=== PATIENT | male | born 1950 | race Caucasian/White ===

== ENCOUNTER 2024-02-24 10:09 | Outpatient (CLI) | payer MEDICARE, OTHER, SELFPAY | END 2024-02-24 10:10 | disposition home or self-care (01) | PROVIDERS: PCP Emergency Medicine; Visit Provider Specialist | DX: L57.0 Actinic keratosis (principal) | CPT/HCPCS: 88305 ==

== ENCOUNTER 2024-03-04 23:31 | Inpatient (IN) | payer MEDICARE, OTHER, SELFPAY ==
--- NOTE | ~2024-03-04 | XR_ITS ---
Clinical Indication: Chest pain PA and lateral views of the chest: Comparison: None Findings: The lungs are clear, without evidence of focal consolidation or pleural effusion. Cardiome diastinal silhouette is within normal limits. Bones and soft tissues are unremarkable. Impression: Normal chest. Reviewed, dictated and finalized at location . Impression: Normal chest.
--- NOTE | ~2024-03-04 | US_ITS ---
US abdomen limited DATE: 03/06/2024 08:06 INDICATION: Abdominal pain TECHNIQUE: Real-time imaging of liver, pancreas, gallbladder COMPARISON: March 05, 2024 CTA chest abdomen and pelvis FINDINGS: No hepatic or pancreatic space-occupying mass lesion is detected. Normal hepatopedal portal venous flow direction. No gallstones or gallbladder wall thickening. Negative sonographic Mane's s ign. The common bile duct measures 2.9 mm diameter, normal. IMPRESSION: No significant abnormality Reviewed, dictated and finalized at Location [facility]. Reviewed, dictated and finalized at location A. IMPRESSION: No significant abnormality
--- NOTE | ~2024-03-04 | CT_ITS ---
Clinical Indication: Dissection CT Scan of the Chest, Abdomen, and Pelvis with Contrast: Technique: Contiguous sections were acquired throughout the chest, abdomen, and pelvis after intraven ous administration of 100 cc of Omnipaque 350. Dose reduction technique was used on this scan by luisa garsia automated exposure control and iterative reconstruction technique. The dose-length product (DL P) was 690.28 mGy-cm. Findings: There is no evidence of any significant mediastinal, hilar or axillary lymphadenopathy. Calcified lef t hilar lymph nodes are present. The mediastinal soft tissues otherwise appear normal. No aortic aneu rysm or dissection. No pulmonary embolus seen. There is no evidence of pleural or pericardial effusion. The lungs are clear, aside from left lower lobe calcified granuloma. The liver, spleen, pancreas, gallbladder, adrenals and kidneys are within normal limits. No evidence of aortic aneurysm or dissection. No lymphadenopathy. No bowel obstruction or bowel wall thickening. Evidence of extensive prior colectomy. Urinary bladder is unremarkable. No pelvic mass seen. No ascites. Impression: No aortic aneurysm or dissection. No acute abnormality. Evidence of prior granulomatous disease. Reviewed, dictated and finalized at [facility]. Impression: No aortic aneurysm or dissection. No acute abnormality. Evidence of prior granulomatous disease.
--- NOTE | 2024-03-04 23:36 | ECG_ITS ---
SEE SCANNED COPY FOR CONFIRMED REPORT MTDD
[2024-03-04] MEDS: ASPIRIN 81 MG CHEWABLE TABLET 324 MG PO (23:38)
[2024-03-04 23:40] VITALS: BP 153/94; PULSE 77; RESP 16; TEMP 36.3; O2SAT 98
[2024-03-04] MEDS: ONDANSETRON INJ 4 MG/2 ML VIAL IV PUSH (23:49)
[2024-03-04] MEDS: MORPHINE SULFATE (*CRX) 4 MG/ML INJ IV PUSH (23:50)
[2024-03-04 23:51] LABS: Hematocrit 48.2 % (42.0-52.0); Mean Corpuscular HGB Conc 33.2 g/dl (32-36); Mean Corpuscular Hemoglobin 31.8 pg (26-34); Mean Corpuscular Volume 95.8 fl (80-100); Mean Platelet Volume 9.8 fl (7.4-10.4); Platelet Count Result 273 k/mm3 (150-375); Red Blood Count 5.03 M/mm3 (4.6-6.20); Red Cell Distribution Width 13.2 % (11.5-14.5); White Blood Count 11.3 K/mm3 (4.5-10.0)
[2024-03-05] VITALS (26 sets, daily range): BP systolic 98–152; BP diastolic 54–84; PULSE 54–83; RESP 12–20; TEMP 36.3–36.7; O2SAT 94–100; BMI 25.2
[2024-03-05 00:01] LABS: Estimated CRCL calculation 35 ml/min; Estimated Glomerular Filt Rate 35
[2024-03-05 00:01] LABS: Alanine Aminotransferase 25 U/L (6-50); Albumin Level 4.4 g/dL (3.5-5.1); Alkaline Phosphatase 85 U/L (38-126); Anion Gap 7 mmol/L (4-12); Aspartate Amino Transferase 29 U/L (17-59); Bilirubin,Total 0.5 mg/dL (0.2-1.3); Blood Urea Nitrogen 26 mg/dL (9-20); Calcium 9.8 mg/dL (8.4-10.2); Carbon Dioxide 24 mmol/L (22-30); Chloride 106 mmol/L (98-107); Estimated CRCL calculation 41 ml/min; Estimated Glomerular Filt Rate 43; Glucose 129 mg/dL (65-110); Lipase 88 U/L (23-300); Sodium 137 mmol/L (137-145)
[2024-03-05 00:02] LABS: INR 0.9; Partial Thromboplastin Time 25.9 Seconds (22.3-36.8); Prothrombin Time 12.3 Seconds (11.1-14.7)
[2024-03-05 00:12] LABS: Troponin I < 0.012 ng/mL (0.000-0.034)
[2024-03-05 00:17] LABS: Band Neutrophils Percent 9 % (0-6); Basophils Absolute Manual 0.11 K/mm3 (0.0-0.1); Basophils Percent Manual 1 % (0-1); Eosinophils Absolute Manual 0.11 K/mm3 (0.02-0.50); Eosinophils Percent Manual 1 % (0-4); Lymphocytes Absolute Manual 5.53 K/mm3 (1.1-4.5); Lymphocytes Percent Manual 49 % (18-44); Monocytes Absolute Manual 0.79 K/mm3 (0.1-0.90); Monocytes Percent Manual 7 % (3-9); Neutrophils Absolute Manual 4.74 K/mm3 (1.3-6.7); Neutrophils Percent Manual 33 % (46-73); Total Cells Counted 100
[2024-03-05 00:18] LABS: Hypochromasia 1+; Platelet Estimate Adequate (Adequate)
[2024-03-05 00:19] LABS: Ovalocytes 1+; Schistocytes None Seen
[2024-03-05] MEDS: NITROGLYCERIN SL 0.4 MG TABLET SUBLINGUAL ×2 (00:34→18:19)
--- NOTE | 2024-03-05 00:50 | ED.CHESTPAIN ---
HPI - Chest Pain General Chief Complaint: Chest Pain Stated Complaint: chest pain Time Seen by Provider: 03/04/24 23:49 History of Present Illness HPI narrative: Patient is a 73-year-old male who presents to the emergency department this morning complaining of substernal chest pain woke him up from sleep. Patient states the pain is 10/10 and is present at rest and not precipitated by any movements or respirations. Pain does radiate to the patient's back. Patient denies any history of aortic aneurysm. 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 Patient does see a punch press feeder, Dr. Yao at [place] according to the . Patient denies any recent fevers or chills, any shortness of breath and denies any additional symptoms or concerns at this time. Related Data Allergies Allergy/AdvReac Type Severity Reaction Status Date / Time niacin Allergy Flushing Verified 03/04/24 23:49 Review of Systems Review of Systems: All systems are reviewed and are negative unless stated otherwise in the HPI. Exam Narrative: General: Alert, awake, afebrile, in moderate distress. HEENT: PERRL, no rhinorrhea, no post nasal drip, oropharynx clear. Neck: Trachea midline, no JVD, no lymphadenopathy. Cardiovascular: Regular rate and rhythm, no murmurs, rubs or gallops, no peripheral edema. Respiratory: Clear to auscultation bilaterally, no tachypnea, no wheezing, no rhonchi, no rubs, no respiratory distress. Abdomen: Soft, nontender, nondistended, no rebound, no guarding, no peritoneal signs. Musculoskeletal: No joint swelling or deformity, normal muscle tone. Skin: No rashes or petechia, no signs of infection. Psychiatric: Alert and oriented, normal behavior and judgment for situation. Neurological: Alert and oriented to person, place, and time. Follows all commands. No focal deficits, speech is clear and fluent. Course Vital Signs Vital signs: Vital Signs Temperature 97.4 F L 03/04/24 23:40 Pulse Rate 77 03/04/24 23:40 Respiratory Rate 16 03/04/24 23:40 Blood Pressure 153/94 H 03/04/24 23:40 Pulse Oximetry 98 03/04/24 23:40 Oxygen Delivery Room Air 03/04/24 23:40 Temperature 97.4 F L 03/04/24 23:40 Pulse Rate 54 L 03/05/24 02:35 Respiratory Rate 16 03/05/24 02:35 Blood Pressure 108/65 03/05/24 02:35 Pulse Oximetry 97 03/05/24 02:35 Oxygen Delivery Room Air 03/05/24 00:34 MDM - Chest Pain MDM Narrative Medical decision making narrative: The patient was evaluated by myself in the emergency department. History is obtained from patient who is an independent historian and physical exam was performed. External medical records were reviewed at this time. IV was established and pertinent tests were ordered. Patient was administered a full dose oral chewable aspirin at this time. Patient continues to have chest pain at this time he was administered 4 mg of IV morphine which did improve his chest pain. Patient was also administered sublingual nitroglycerin. EKG was obtained which revealed sinus rhythm with a rate of 68 beats per minute. Nonspecific T-wave inversions and ST depressions, no ST elevations. EKG was independently interpreted by me and is currently pending official cardiology read. Serial EKGs obtained during the patient's ER stay continue to reveal no evidence of a myocardial infarction, patient does have ischemic changes on his EKG including T-wave inversions and ST depressions, no ST elevations noted. Laboratory results obtained revealing no acute process. Initial troponin noted to be negative. Patient's kidney function revealed a BUN of 26 and creatinine of 1.9, patient denies any history of kidne
[2024-03-05] MEDS: ONDANSETRON INJ 4 MG/2 ML VIAL IV PUSH (00:54)
[2024-03-05] MEDS: MORPHINE SULFATE (*CRX) 4 MG/ML INJ IV PUSH (00:54)
--- NOTE | 2024-03-05 02:36 | ECG_ITS ---
SEE SCANNED COPY FOR CONFIRMED REPORT MTDD
[2024-03-05 03:06] LABS: Troponin I 0.044 ng/mL (0.000-0.034)
[2024-03-05] MEDS: HEPARIN SOD/D5W 100 UNITS/ML 25,000 UNITS/250 ML BAG 10 UNITS IV CONT (04:05)
--- NOTE | 2024-03-05 05:10 | ADMGEN ---
This patient, Louis Yanes, was admitted to IMU Room 210-01. Patient/family oriented to hospital policies and general routines including ID bracelet, bed and alarms, visiting hours, pain management, procedures, bathroom and other care routines, personal items, smoking policy, room service/diet, and visiting hours. Information on how to activate the Rapid Response Team has been discussed. Patient/Family are encouraged to report perceived risks to care and to ask questions if they do not understand what they are told or what they should do.
[2024-03-05 06:02] LABS: Troponin I 0.158 ng/mL (0.000-0.034)
--- NOTE | 2024-03-05 09:48 | PM.IMHP ---
H&P: HPI History of Present Illness Date/Time: 03/05/24 09:48 Chief Complaint: chest pain Narrative: Patient 73-year-old male with a past medical history bladder cancer, colon cancer, skin cancer, CAD with multiple cardiac caths without stent placement who presented to the ED with complaints of chest pain. Patient stated that he was up watching TV around 7 8 is when all the pain started however he decided that he was going to go to bed around 9. At 10:00 p.m. he woke up in lot of pain in the middle of the chest with radiation to the flu. He stated home he took ibuprofen with no relief. He denies any shortness a breath, nausea, vomiting, diarrhea, chills, sweats, fevers, constipation. He did state that he has lightheaded dizziness however has been diagnosed the past with vertigo. EKG in the ED did show sinus rhythm with some is T-wave inversion however no ST elevations. Troponins are rising with the last troponin being 1.58. Chest x-ray showed clear lungs without consolidation or pleural effusion. CTA of the chest showed apathy pulmonary embolism. Cardiology has been consulted. Patient has been started on a heparin drip. Patient is being admitted to the hospitalist service as an inpatient will require more than 2 midnights workup, treatment and recovery. Review of Systems Review of Systems: All systems reviewed & are unremarkable except as noted in HPI and below PMFSH Past Medical History Medical History (Updated 03/05/24 @ 10:04 by SUNITA Parish) Bladder cancer BPH (benign prostatic hyperplasia) Colon cancer HLD (hyperlipidemia) Skin cancer Surgical History Surgical History (Updated 03/05/24 @ 09:58 by SUNITA Parish) History of colon resection Family History Family History (Updated 03/05/24 @ 10:10 by SUNITA Parish) Mother Lung cancer Sibling Lung cancer Grandparent Liver cancer Father Acute myocardial infarction Diabetes mellitus Social History Social History (Updated 03/05/24 @ 10:11 by SUNITA Parish) Social History: With his Clari who will be his surrogate. He also wishes to be a full code at this time. He was x-ray tech for 47 years. Is Smoking status: Never smoker Alcohol intake: never Substance use: never Substance use type: does not use Do You Feel Safe in your Home?: Yes Lack of Transportation: No Lack of Food: Never True Current Housing: I Have Housing Concerned About Future Housing: No Difficulty Paying Gas/Electric Bills: No Difficulty Paying for Meds: No Currently Unemployed: No Education: Bachelor's Degree Difficulty w/ Childcare or Family Care: No Living arrangements: with family Occupation/Education: retired Additional occupation/education comments: X-ray tech Gender identity (if verbalized by the patient): Male Sexual Orientation (if Verbalized by the Patient): Straight or Heterosexual Spiritual care concerns: No Agree to blood products: Yes Comments Patient wishes to be a full code. He elected his Clari to be his surrogate. He was an instructional technology teacher for 47 years. Meds Home Medications and Allergies Home Medications Medication Instructions Recorded Confirmed Type alirocumab 150 mg/mL subcutaneous 1 mg subcut USEASDIRECTD 03/05/24 03/05/24 History pen injector (Praluent Pen) ezetimibe 10 mg tablet 10 mg PO DAILY 03/05/24 03/05/24 History finasteride 5 mg tablet 5 mg PO 2XW 03/05/24 03/05/24 History latanoprost 0.005 % eye drops 1 drp EACH EYE HS 03/05/24 03/05/24 History pantoprazole 40 mg tablet,delayed 40 mg PO DAILY 03/05/24 03/05/24 History release silodosin 8 mg capsule 8 mg PO DAILY 03/05/24 03/05/24 History Allergies Allergy/AdvReac Type Severity Reaction Status Date / Time midazolam [From Versed] Allergy Irritable Verified 03/05/24 09:58 niacin Allergy Flushing Verified 03/04/24 23:49 Vital Signs Vital Signs - 24 hr 03/04/24 23:40 03/05/24 00:34 03/05/24
--- NOTE | 2024-03-05 09:49 | PM.CNCAR ---
Assessment and Plan Assessment and plan (1) Acute non-ST elevation myocardial infarction (NSTEMI): Code(s): I21.4 - Non-ST elevation (NSTEMI) myocardial infarction Status: Acute Plan This is a 73-year-old man with dyslipidemia who entered the hospital last night after an episode of chest pain radiating to the midback that brought him in and awakened him from sleep. His electrocardiograms are unremarkable there has been a very modest rise in his troponin as noted on the lab data. Interestingly he has had 2 previous coronary angiograms performed by his history with negative findings. The most recent 1 however was about 11 years ago. Because of his symptoms and risk factors with his elevation of troponin he should have another coronary angiogram performed today. He of course understands this as he has had 2 previous catheterization procedures performed. Further recommendations will be forthcoming those findings Luís Alston MD [facility] History of Present Illness History of Present Illness Consult date/time: 03/05/24 09:49 Reason For Visit: NSTEMI Narrative: This is a 73-year-old man I am seeing at the request of the hospitalist because of chest pain and rise in his troponin level. The patient is unknown to me prior to this consult and appears is unknown to physicians at this hospital as a it appears this is his 1st admission here. He receives all his medical care up in [facility]. He reports to have a history of dyslipidemia, intolerance to statins and is being treated with Praluent and Zetia. He reports that he is otherwise generally in good health and does not have any significant cardiac concerns. He came to the emergency room by his private vehicle in the middle of the night when he was awakened with some chest pain he describes a central retrosternal chest pain that radiated through to his back with no associated symptoms such as nausea vomiting or diaphoresis. He took some ibuprofen hope Ling that this would alleviate the symptoms. When it did not after about 45 minutes they came to the emergency room for evaluation. His electrocardiograms in the ER were unremarkable his 1st troponin level was normal but has risen slightly to 0.1. He states that he still has some very mild sense of pressure in the center of the chest but appears to be otherwise very comfortable at the time of this interview. Normally with physical exertion and manual activity he is not provoking any symptoms of chest pain he denies any palpitations orthopnea PND or edema. Curiously he states that he has had 2 previous coronary angiograms performed S apparently with favorable results. He states he had and angiogram done back in about 1994 which was following up in abnormal stress test. 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 He then had a 2nd angiogram done in 2012 prior to colon surgery. He can not remember why the angiogram was felt to be necessary but once again he remembers being told that he did not have any coronary disease. He does not have any history of hypertension diabetes or cigarette smoking. He is retired x-ray technologist. Review of Systems Constitutional: Constitutional: Reports no additional constitutional complaints Eyes: Eyes: Reports no additional eye complaints ENT: Reports system reviewed and no additional complaints, except as documented Cardiovascular: Cardiovascular: Reports as per HPI Respiratory: Respiratory: Reports no additional respiratory complaints Gastrointestinal: Gastrointestinal: Reports heartburn Musculoskeletal: Musculoskeletal: Reports no additional musculoskeletal complaints Integumentary/Breasts: Skin/Breast: Reports system reviewed and no additional complaints, except as docu Neurologic: Reports system reviewed and no additional complaints, except as documented Endocrine: Endocrine: Reports no additional endocrine complaints Hemato
[2024-03-05 10:23] LABS: Partial Thromboplastin Time 56.3 Seconds (22.3-36.8)
[2024-03-05 10:26] LABS: Alanine Aminotransferase 22 U/L (6-50); Albumin Level 3.8 g/dL (3.5-5.1); Alkaline Phosphatase 70 U/L (38-126); Anion Gap 3 mmol/L (4-12); Aspartate Amino Transferase 34 U/L (17-59); Bilirubin,Total 0.6 mg/dL (0.2-1.3); Blood Urea Nitrogen 28 mg/dL (9-20); Calcium 9.1 mg/dL (8.4-10.2); Carbon Dioxide 26 mmol/L (22-30); Chloride 108 mmol/L (98-107); Estimated CRCL calculation 50 ml/min; Estimated Glomerular Filt Rate 54; Glucose 105 mg/dL (65-110); Magnesium 2.1 mg/dL (1.6-2.3); Potassium 3.9 mmol/L (3.4-5.0); Sodium 137 mmol/L (137-145)
[2024-03-05 10:30] LABS: Cholesterol 136 mg/dL (0-200); HDL Direct 48 mg/dL; Triglycerides 218 mg/dL (<150)
[2024-03-05 10:35] LABS: Troponin I 0.874 ng/mL (0.000-0.034)
[2024-03-05 10:40] LABS: LDL Cholesterol Direct 66 mg/dL
[2024-03-05] MEDS: HEPARIN SODIUM 5,000 UNITS/ML VIAL 3500 UNITS IV PUSH (10:55)
[2024-03-05 11:19] LABS: Basophils Absolute Auto 0.1 K/mm3 (0.0-0.1); Eosinophils Absolute Auto 0.2 K/mm3 (0-0.3); Eosinophils Percent Auto 2.3 % (0-4.4); Hematocrit 44.2 % (42.0-52.0); Hemoglobin 14.6 g/dL (14.0-18.0); Immature Granulocyte Absolute 0.05 K/mm3 (0.00-0.031); Immature Granulocyte Percent A 0.6 % (0-0.5); Lymphocytes Absolute Auto 4.34 K/mm3 (0.9-3.2); Mean Corpuscular Hemoglobin 32.8 pg (26-34); Mean Corpuscular Volume 99.3 fl (80-100); Mean Platelet Volume 10.4 fl (7.4-10.4); Monocytes Absolute Auto 0.7 K/mm3 (0.1-0.6); Monocytes Percent Auto 7.9 % (2.6-8.5); Neutrophils Absolute Auto 3.5 K/mm3 (1.3-6.7); Neutrophils Percent Auto 39.2 % (45.5-73.1); Platelet Count Result 238 k/mm3 (150-375); Red Blood Count 4.45 M/mm3 (4.6-6.20); Red Cell Distribution Width 13.2 % (11.5-14.5); White Blood Count 8.9 K/mm3 (4.5-10.0)
--- NOTE | 2024-03-05 11:22 | PC.NURSE ---
Patient retrieved from [employer]visor [employer] personnel @ [id number], appropriate documentation and charts sent with patient.
--- NOTE | 2024-03-05 11:33 | WPDMODSED ---
Moderate Sedation Note-Pt Data Patient Data Diagnosis: Chest pain elevated troponin Present Complaint: episode of nocturnal chest pain last evening Procedure to be performed/Plan: left heart catheterization Allergies Allergy/AdvReac Type Severity Reaction Status Date / Time midazolam [From Versed] Allergy Irritable Verified 03/05/24 09:58 niacin Allergy Flushing Verified 03/04/24 23:49 Home Medications Medication Instructions Recorded Confirmed Type alirocumab 150 mg/mL subcutaneous 1 mg subcut USEASDIRECTD 03/05/24 03/05/24 History pen injector (Praluent Pen) ezetimibe 10 mg tablet 10 mg PO DAILY 03/05/24 03/05/24 History finasteride 5 mg tablet 5 mg PO 2XW 03/05/24 03/05/24 History latanoprost 0.005 % eye drops 1 drp EACH EYE HS 03/05/24 03/05/24 History pantoprazole 40 mg tablet,delayed 40 mg PO DAILY 03/05/24 03/05/24 History release silodosin 8 mg capsule 8 mg PO DAILY 03/05/24 03/05/24 History Current Medications: Active Medications Ezetimibe (Ezetimibe 10 Mg Tablet) 10 mg PO DAILY STEPHANE Finasteride (Finasteride 5 Mg Tablet) 5 mg PO MoTh@0900 [facility] Heparin Sodium (Porcine) (Heparin Sodium 5,000 Units/Ml Vial) 4,000 units IV PUSH PRN PRN PRN Reason: aPTT less than 55 seconds Heparin Sodium (Porcine) (Heparin Sodium 5,000 Units/Ml Vial) 3,500 units IV PUSH PRN PRN PRN Reason: aPTT 55 - 70 seconds Last Admin: 03/05/24 10:55 Dose: 3,500 units Heparin Sodium/Dextrose (Heparin Sodium/D5w 100 Units/Ml) 25,000 units in 250 mls @ 0 mls/hr IV CONT .Q0M STEPHANE; Protocol Last Titration: 03/05/24 11:14 Dose: 0 units/hr, 0 mls/hr Latanoprost (Latanoprost 0.005% Op Soln 2.5 Ml Btl) 1 drop EACH EYE [facility] Miscellaneous Information (Silodosin Nonformulary. Can Patient Use From Home Or Hold Till Discharge?) 1 each XX CLARIFY STEPHANE Stop: 04/04/24 00:00 Non-Formulary Medication (Silodosin) 8 mg PO DAILY STEPHANE Stop: 04/05/24 08:59 Pantoprazole Sodium (Pantoprazole 40 Mg Tablet) 40 mg PO DAILY [facility] Sedation/Anesthesia: No previous sedation/anesthesia problems (including family history). [facility] Past Medical History Medical History (Updated 03/05/24 @ 10:04 by SUNITA Parish) Bladder cancer BPH (benign prostatic hyperplasia) Colon cancer HLD (hyperlipidemia) Skin cancer Surgical History Surgical History (Updated 03/05/24 @ 09:58 by SUNITA Parish) History of colon resection Family History Family History (Updated 03/05/24 @ 10:10 by SUNITA Parish) Mother Lung cancer Sibling Lung cancer Grandparent Liver cancer Father Acute myocardial infarction Diabetes mellitus Social History Social History (Updated 03/05/24 @ 10:11 by SUNITA Parish) Social History: With his Clari who will be his surrogate. He also wishes to be a full code at this time. He was x-ray tech for 47 years. Is Smoking status: Never smoker Alcohol intake: never Substance use: never Substance use type: does not use Do You Feel Safe in your Home?: Yes Lack of Transportation: No Lack of Food: Never True Current Housing: I Have Housing Concerned About Future Housing: No Difficulty Paying Gas/Electric Bills: No Difficulty Paying for Meds: No Currently Unemployed: No Education: Bachelor's Degree Difficulty w/ Childcare or Family Care: No Living arrangements: with family Occupation/Education: retired Additional occupation/education comments: X-ray tech Gender identity (if verbalized by the patient): Male Sexual Orientation (if Verbalized by the Patient): Straight or Heterosexual Spiritual care concerns: No Agree to blood products: Yes Mod Sed Physical Exam Physical Exam Pre Procedural Exam: Normal: Appearance, Neck, Throat, Airway, Lungs, Heart Size, Heart Rate, Heart Rhythm, Neuro Exam and Extremities Hours since solid foods: 12 Hours since liquid intake: 12 Mallampati Classification: class II Internal Medicine - PN: Obj Da Vital Si
--- NOTE | 2024-03-05 12:05 | WPDCARDPROC ---
Cardiac Cath Procedure Note Date of procedure:: 03/05/24 Performing physician:: Luís Alston MD Indication:: chest pain/acute coronary syndrome Brief clinical history:: this is a 73-year-old man who not previously known to have any significant coronary disease. He enters the hospital last night with some chest pain that awakened him from sleep. His electrocardiograms looked favorable however he has had a modest rise in his troponin. He describes 2 previous coronary angiograms done approximately 30 years ago and 11 years ago and was told they were unremarkable. A previous angiogram apparently was demonstrated some evidence of myocardial bridging. Procedure Procedure performed:: Left ventriculogram coronary angiogram Angio-Seal to right femoral artery Sedation/Medication given:: fentanyl 50 mg case start time 11:37 a.m. case end time 11:58 a.m. sedation provided by Lisandra Payne RN, trained observer Access site:: right femoral artery Estimated blood loss:: 20 cc Procedure note:: patient was brought to the cardiac catheterization lab in the postabsorptive state right femoral triangle was prepped and draped the normal sterile fashion. Anesthesia was given with 1% lidocaine infiltrated locally. Using the modified Seldinger technique the right femoral artery was punctured and a 5 Slovenian vascular sheath was placed. After this I performed a left ventriculogram and measured left-sided hemodynamics using a 5 Slovenian angled pigtail catheter. After this left coronary artery was engaged and injected using a 5 Slovenian FL4 catheter. The right coronary was engaged and injected using a standard 5 Slovenian JR4 catheter. The cineangiograms were reviewed and the case was terminated. An Angio-Seal was put deployed at the arterial puncture site after an angiogram was done of the femoral artery through the sheath. There was a good hemostatic result. The patient left the laboratory supervisor without any complications and with no evidence of groin hematoma. Findings:: Hemodynamics: Central aortic pressure is 1 30 over 60 left ventricle 130/0 end-diastolic 14 no gradient on pullback across the aortic valve. Left ventricle: The left ventricle is normal in size all segments contract appropriately the global ejection fraction is visually estimated to be 65%. The left main coronary artery is nicely patent the left anterior descending is a medium caliber artery extending down to the apex. There are diffuse minimal luminal irregularities in the LAD but no flow-limiting disease is seen. In the mid LAD in the CARINA cranial projection there is evidence of some myocardial bridging. The circumflex is a moderate caliber artery giving rise to the marginal branches and posterior branch. The circumflex has minimal luminal irregularities in the trunk of the vessel but no significant disease is seen. The right coronary artery is a codominant terminating in a small RPDA the caliber of the right coronary artery is small to medium in size. The right coronary has a trifurcation point in the proximal segment and the right ventricular acute marginal branch has ostial stenosis of approximately 70%. The channel of the RCA itself has no significant disease. There was LAWRENCE 3 flow throughout the vessel. Conclusion:: 1. codominant coronary circulation with primarily mild angiographically diffuse coronary artery disease. 2. 70% stenosis seen at the origin of the RV acute marginal branch which takes off from the 1st portion of the small to medium-sized right coronary artery. 3. Preserved left ventricular systolic function 4. medical therapy for this patient's coronary disease is recommended at this time. Aspirin and beta-omid will be added to his regimen Luís Alston MD [facility]
--- NOTE | 2024-03-05 12:24 | PHAR ---
Pharmacy verified home med: * Use from home * Silodosin 8 mg capsule take 1 capsule by mouth at bedtime
--- NOTE | 2024-03-05 13:14 | PC.NURSE ---
Addendum entered by Anamaria Lawson RN 03/05/24 13:14: Patient received back from rn cardiac cath @ 1314 bedside handoff provided by SAW Fry. Right Femoral Cath site clean dry and intact Original Note: Patient received back from rn cardiac cath, bedside handoff provided by SAW Fry. Right Femoral Cath site clean dry and intact
[2024-03-05] MEDS: SODIUM CHLORIDE 0.9% IV 1,000 ML 125 ML IV CONT (13:19)
[2024-03-05] MEDS: ACETAMINOPHEN 325 MG TABLET 650 MG PO (17:18)
--- NOTE | 2024-03-05 18:46 | ECG_ITS ---
SEE SCANNED COPY FOR CONFIRMED REPORT MTDD
[2024-03-05] MEDS: MAG HYDROX/AL HYDROX/SIMETH 30 ML UDC 60 ML PO (19:10)
[2024-03-05] MEDS: MORPHINE SULFATE (*CRX) 2 MG/ML INJ IV PUSH (19:10)
[2024-03-05] MEDS: LATANOPROST 0.005% OP SOLN 2.5 ML BTL 1 DROP EACH EYE (21:02)
[2024-03-05] MEDS: PANTOPRAZOLE 40 MG TABLET PO (21:03)
[2024-03-05] MEDS: EZETIMIBE 10 MG TABLET PO (21:03)
[2024-03-06] VITALS (17 sets, daily range): BP systolic 92–124; BP diastolic 51–81; PULSE 57–77; RESP 15–18; TEMP 36.3–36.9; O2SAT 96–100
--- NOTE | 2024-03-06 | ECHO_ITS ---
Patient Info Name: Louis Yanes Age: 73 years : 1950 Gender: Male Ht: 72 in Wt: 180 lbs BSA: 2.04 m2 HR: 69 bpm BP: 108 / 56 mmHg Heart Rhythm: Sinus Rhythm Technical Quality: Good Exam Date: 03/06/2024 8:15 AM Exam Location: Echo Lab Patient Status: Inpatient Admit Date: 03/05/2024 Staff Ordering Physician: Jj Tyler MD Bracer: Rut Loja RDCS Attending Provider: Beverly Leger MD Referring Physician: Nayeli QUEZADA; Exam Type: CA echo doppler color flow Study Info Indications - chest pain Complete two-dimensional, color flow and Doppler transthoracic echocardiogram is performed. Summary 1. Left ventricular chamber dimension is normal. 2. Left ventricular systolic function is normal, estimated at 60-65%. 3. There is mildly increased left ventricular wall thickness. 4. The left ventricular diastolic function is normal. 5. There is mild mitral valve regurgitation. 6. There is no aortic valve stenosis. 7. There is trivial pericardial effusion. 8. Normal inferior vena cava with >50% collapse upon inspiration consistent with normal right atrial pressure, 5 mmHg. Left Ventricle Left ventricular chamber dimension is normal. Left ventricular systolic function is normal, estimated at 60-65%. There is mildly increased left ventricular wall thickness. The left ventricular diastolic function is normal. Right Ventricle Right ventricular chamber dimension is normal. Right ventricular systolic function is normal. Left Atria Left atrial chamber dimension is normal. Right Atria Right atrial chamber dimension is normal. Aortic Valve The aortic valve is not well visualized. There is no aortic valve stenosis. There is no aortic valve regurgitation. Pulmonic Valve The pulmonic valve is not well visualized. There is trace pulmonic regurgitation. Mitral Valve The mitral valve has normal leaflets. There is mild mitral valve regurgitation. The mitral valve annulus is mildly calcified. Tricuspid Valve The tricuspid valve leaflets are normal. There is mild tricuspid valve regurgitation. No pulmonary hypertension, estimated pulmonary arterial systolic pressure is 18 mmHg. Pericardium/Pleural The pericardium appears epicardial fat pad. There is trivial pericardial effusion. Inferior Vena Cava Normal inferior vena cava with >50% collapse upon inspiration consistent with normal right atrial pressure, 5 mmHg. Aorta The aortic root size at the sinus of Valsalva is normal. The prox ascending aorta size is normal. Left Ventricular Outflow Tract Name Value Normal LVOT 2D LVOT Diameter 2.0 cm LVOT Doppler LVOT Peak Gradient 4 mmHg LVOT Mean Gradient 2 mmHg LVOT VTI 25 cm LVOT VTI/AV VTI Ratio 0.9 LVOT Stroke Volume 81 ml LVOT CO 4.8 l/min LVOT CI 2.4 l/min/m2 Pulmonic Valve Name Value Normal
--- NOTE | 2024-03-06 00:16 | ECG_ITS ---
SEE SCANNED COPY FOR CONFIRMED REPORT MTDD
[2024-03-06] MEDS: MORPHINE SULFATE (*CRX) 2 MG/ML INJ IV PUSH (00:22)
[2024-03-06 00:41] LABS: Hemoglobin 15.4 g/dL (14.0-18.0); Mean Corpuscular HGB Conc 34.2 g/dl (32-36); Mean Corpuscular Hemoglobin 32.3 pg (26-34); Mean Corpuscular Volume 94.3 fl (80-100); Mean Platelet Volume 9.9 fl (7.4-10.4); Platelet Count Result 237 k/mm3 (150-375); Red Blood Count 4.77 M/mm3 (4.6-6.20); White Blood Count 9.2 K/mm3 (4.5-10.0)
[2024-03-06 00:49] LABS: Alanine Aminotransferase 24 U/L (6-50); Albumin Level 3.9 g/dL (3.5-5.1); Alkaline Phosphatase 69 U/L (38-126); Anion Gap 7 mmol/L (4-12); Aspartate Amino Transferase 33 U/L (17-59); Bilirubin,Total 0.6 mg/dL (0.2-1.3); Blood Urea Nitrogen 20 mg/dL (9-20); Calcium 9.3 mg/dL (8.4-10.2); Carbon Dioxide 20 mmol/L (22-30); Chloride 109 mmol/L (98-107); Estimated CRCL calculation 58 ml/min; Estimated Glomerular Filt Rate > 60; Glucose 120 mg/dL (65-110); Sodium 136 mmol/L (137-145)
[2024-03-06 00:50] LABS: Lactic Acid Reflex 1.9 mmol/L (0.7-2.0)
[2024-03-06] MEDS: MAG HYDROX/AL HYDROX/SIMETH 30 ML UDC 60 ML PO (00:51)
[2024-03-06 00:53] LABS: Amylase 96 U/L (30-110); Lipase 383 U/L (23-300)
--- NOTE | 2024-03-06 01:00 | PM.EVENT ---
Event Note Event Note Event Note: 03/06/2024 at 00:30 Nursing staff called me to come evaluate the patient. Patient had originally been admitted for chest pain and had elevated troponins. He had a cardiac catheterization that demonstrated 70% stenosis of a marginal branch of the RCA but was otherwise unremarkable. The patient since procedure as had recurrent chest pain but this pain is now been located more in the epigastric region. Patient reports associated bloating. It is been 1-2 days since he had a bowel movement. He has had prior complete large colon resection due to recurrent colon cancer. CTA of the chest abdomen pelvis performed on day of admission demonstrated no evidence of bowel obstruction or acute abdominal process. At the time of my evaluation patient did have some high-pitched bowel sounds in abdomen was slightly distended. However the patient's pain is located and reproducible in the epigastric and right upper quadrant region. Patient had a positive Mane sign with the majority of his pain located in the right upper quadrant. The patient did have associated nausea with dry heaves. The patient had repeat troponins that were trending down with repeat troponin still pending and repeat EKGs that demonstrated no acute change. The patient's symptoms earlier in the evening had been improved after a dose of Maalox. Stat labs were obtained including lactic acid, CBC, CMP and lipase. Patient's lipase was slightly elevated above cutoff for normal. 1. Coronary artery disease--a did not require acute intervention. Patient is currently on primary prevention strategies managed by Cardiology. Will continue to monitor in IMU. Will defer to Cardiology management. 2. Right upper quadrant abdominal pain and elevated lipase--exam significant for positive Mane sign concerning for acute cholecystitis. Will make patient NPO. Nausea medications and pain medications have been ordered. Will start the patient on IV fluid hydration. Patient will likely need general surgery consult depending on ultrasound results versus further imaging with HIDA scan. The patient has had multiple abdominal surgeries due to recurrent colon cancer in the past. 37 minute spent in critical care activities. Due to a high probability of clinically significant, life threatening deterioration, the patient required my highest level of preparedness to intervene emergently and I personally spent this critical care time directly and personally managing the patient. This critical care time included obtaining a history; examining the patient; pulse oximetry; ordering and review of studies; arranging urgent treatment with development of a management plan; evaluation of patient's response to treatment; frequent reassessment; and discussions with other providers. It was exclusive of separately billable procedures and treating other patients and teaching time. Please see Assessment and Plan section and the rest of the note for further information on patient assessment and treatment.
[2024-03-06] MEDS: ONDANSETRON INJ 4 MG/2 ML VIAL IV PUSH (01:13)
--- NOTE | 2024-03-06 01:16 | PC.NURSE ---
0000: CCT, Susan Arriaga, alerted RN to change in patient condition. RN to bedside. Patient in visible stress; crying, dry heaving and tachypneic. Patient complaining of 10/10 chest pain. 0010: Patient placed on 4LNC and contacted MD Tyler whom ordered morphine, EKG and troponin. 0026: RN made contact with MD Wall who reported she would come to bedside. 0033: EKG sent to MD Tyler per his request. 0043: MD Wall at bedside. Patient appears to be in less distress since morphine administration. MD Wall to put in orders. Critical troponin called to both MD Alfaro and MD Wall. Care continues.
[2024-03-06] MEDS: SODIUM CHLORIDE 0.9% IV 1,000 ML 100 ML IV CONT ×3 (01:34→20:50)
[2024-03-06 03:39] LABS: Basophils Percent Auto 0.4 % (0.2-1.2); Eosinophils Absolute Auto 0.1 K/mm3 (0-0.3); Eosinophils Percent Auto 1.2 % (0-4.4); Hematocrit 44.5 % (42.0-52.0); Hemoglobin 14.8 g/dL (14.0-18.0); Immature Granulocyte Absolute 0.05 K/mm3 (0.00-0.031); Immature Granulocyte Percent A 0.5 % (0-0.5); Lymphocytes Absolute Auto 2.96 K/mm3 (0.9-3.2); Lymphocytes Percent Auto 27.3 % (18.3-44.2); Mean Corpuscular HGB Conc 33.3 g/dl (32-36); Mean Corpuscular Hemoglobin 32.1 pg (26-34); Mean Corpuscular Volume 96.5 fl (80-100); Mean Platelet Volume 9.7 fl (7.4-10.4); Monocytes Absolute Auto 0.7 K/mm3 (0.1-0.6); Monocytes Percent Auto 6.8 % (2.6-8.5); Neutrophils Absolute Auto 6.9 K/mm3 (1.3-6.7); Neutrophils Percent Auto 63.8 % (45.5-73.1); Platelet Count Result 212 k/mm3 (150-375); Red Blood Count 4.61 M/mm3 (4.6-6.20); Red Cell Distribution Width 13.1 % (11.5-14.5); White Blood Count 10.9 K/mm3 (4.5-10.0)
[2024-03-06 03:50] LABS: Alanine Aminotransferase 24 U/L (6-50); Albumin Level 3.7 g/dL (3.5-5.1); Alkaline Phosphatase 66 U/L (38-126); Anion Gap 4 mmol/L (4-12); Aspartate Amino Transferase 35 U/L (17-59); Bilirubin,Total 0.6 mg/dL (0.2-1.3); Blood Urea Nitrogen 19 mg/dL (9-20); Calcium 8.6 mg/dL (8.4-10.2); Carbon Dioxide 24 mmol/L (22-30); Chloride 107 mmol/L (98-107); Estimated CRCL calculation 64 ml/min; Estimated Glomerular Filt Rate > 60; Glucose 125 mg/dL (65-110); Magnesium 2.3 mg/dL (1.6-2.3); Sodium 135 mmol/L (137-145)
[2024-03-06 04:43] LABS: INR 0.9; Prothrombin Time 12.4 Seconds (11.1-14.7)
[2024-03-06 04:44] LABS: Partial Thromboplastin Time 27.3 Seconds (22.3-36.8)
[2024-03-06] MEDS: HEPARIN SOD/D5W 100 UNITS/ML 25,000 UNITS/250 ML BAG 10 UNITS IV CONT (05:00)
[2024-03-06] MEDS: HEPARIN SODIUM 5,000 UNITS/ML VIAL 4000 UNITS IV PUSH (05:00)
--- NOTE | 2024-03-06 08:24 | PM.IMPN ---
Progress Note: A&P Assessment and Plan (1) Acute non-ST elevation myocardial infarction (NSTEMI): Code(s): I21.4 - Non-ST elevation (NSTEMI) myocardial infarction Status: Acute Assessment and Plan: Presented to the ED with complaints of chest pain. History of cardiac catheterization x2 with negative findings He had unremarkable EKGs, however elevated troponin which is still trending up - last troponin was 2.29. Continue to trend to peak CXR and CTA of the chest unremarkable with no evidence of pulmonary embolism He has been seen in consultation by Cardiology and underwent cardiac catheterization on 03/05/2024 - no acute intervention was required. Catheterization demonstrated 70% stenosis of RV acute marginal branch which will be managed medically. He was started on aspirin and metoprolol Continue heparin drip at this time; will await further cardiology recommendations (2) Epigastric pain: Code(s): R10.13 - Epigastric pain Status: Acute Assessment and Plan: Overnight developed recurrence of chest pain, however was more localized in epigastric region. Has history of complete large colon resection due to recurrent colon cancer CTA of chest/abdomen/pelvis at time of admission was unremarkable Did have positive Mane sign on exam initially and right upper quadrant ultrasound was ordered which is unremarkable with negative sonographic mane sign. Exam is unremarkable at this time and his symptoms have resolved Lipase was minimally elevated, 383. Will repeat Currently NPO and started on IV fluids. Consider advancing diet pending repeat lipase and cardiology evaluation (3) HLD (hyperlipidemia): Qualifiers: Hyperlipidemia type: mixed hyperlipidemia Qualified Code(s): E78.2 - Mixed hyperlipidemia Code(s): E78.5 - Hyperlipidemia, unspecified Status: Acute Assessment and Plan: Lipid panel reviewed with elevated triglycerides (218), otherwise unremarkable Continue Zetia Home praluent is nonformulary Adjust therapy as indicated (4) BPH (benign prostatic hyperplasia): Qualifiers: Lower urinary tract symptom presence: symptoms absent Qualified Code(s): N40.0 - Benign prostatic hyperplasia without lower urinary tract symptoms Code(s): N40.0 - Benign prostatic hyperplasia without lower urinary tract symptoms Status: Acute Assessment and Plan: Voiding without difficulty Continume home silodosin and finasteride Subjective Date/time seen: 03/06/24 08:24 Interval history: Louis is doing well this morning. He had an episode overnight of discomfort that was mostly localized in the epigastric area. He also had dry heaves and sweats. These symptoms have now resolved entirely. He had a small bowel movement this morning and is passing flatus. He denies abdominal pain, cramping, or bloating. He denies any chest pain or pressure. This morning he did have a very short episode of discomfort between his shoulder blades, though he wonders if this was related to sleeping on comfortably in the hospital bed. Denies jaw pain or arm pain. Denies palpitations. Denies nausea, vomiting, fever, chills, sweats. No dizziness or lightheadedness. Review of Systems Review of Systems: All systems reviewed & are unremarkable except as noted in HPI and below Exam Narrative: General: Awake, alert, comfortable, no acute distress, sitting up in bed HEENT: Normocephalic, atraumatic, sclerae anicteric Respiratory: Clear to auscultation bilaterally without crackles, rhonchi, wheezes, normal respiratory effort, no accessory muscle use Cardio: Regular rate, regular rhythm Abdomen: Nondistended, soft, nontender Skin: Normal coloration, warm and dry, no rashes or lesions Neurologic: Awake, alert and oriented x4, speech clear, no focal neuro deficits noted Psychiatric: Appropriate mood and affect, judgment and insight intact Objective Philip
[2024-03-06] MEDS: ASPIRIN 81 MG ENTERIC TABLET PO (08:58)
[2024-03-06] MEDS: PANTOPRAZOLE 40 MG TABLET PO (08:58)
[2024-03-06] MEDS: METOPROLOL SUCCINATE EXT REL 25 MG TABCR PO (08:58)
[2024-03-06 09:23] LABS: Lipase 299 U/L (23-300)
--- NOTE | 2024-03-06 09:55 | ECG_ITS ---
SEE SCANNED COPY FOR CONFIRMED REPORT MTDD
[2024-03-06] MEDS: CLOPIDOGREL BISULFATE 300 MG TABLET PO (10:12)
[2024-03-06] MEDS: ATORVASTATIN 40 MG TABLET 80 MG PO (10:12)
--- NOTE | 2024-03-06 10:54 | PM.PNCARD ---
Progress Note: A&P Assessment and Plan (1) Acute non-ST elevation myocardial infarction (NSTEMI): Code(s): I21.4 - Non-ST elevation (NSTEMI) myocardial infarction Status: Acute Assessment and Plan: Patient presents with concerning unstable anginal symptoms with mild troponin elevation peaking at 0.8 for which coronary angiography was performed and revealed up to 70% stenosis in RCA small caliber vessel just prior to bifurcation of small 1st and 2nd RV marginal branches. He had nonobstructive disease in the LAD and circumflex with a small hazy segment in the mid LAD but with LAWRENCE 3 flow throughout. He had been pain free but then last night developed progressive chest pain with associated nausea abdominal discomfort with initial decline in repeat troponin to 0.7 subsequent increase to 1.2 and peaking at 4.4 concerning for myocardial ischemia. However, supple repeat ECG revealed no ischemic changes and echocardiogram performed early this morning revealed no wall motion abnormalities, preserved LV function. He has been hemodynamically stable, he is not tachycardic. He is not hypoxic unsteady 97-100% on room air. His laboratory studies are otherwise stable with exception of elevated troponin. Very lengthy discussion with held with the patient, his and son at bedside as well as Dr. Valencia interventional cardiology on multiple occasions personally reviewing over video his angiogram in discussing echocardiogram results. Unfortunately, this is a highly unusual situation given the lack of associated wall motion abnormalities, ECG changes but with a significant increase in his troponin with concerning anginal symptoms for he had mild nonobstructive disease throughout with exception of a 70% stable appearing plaque which should unlikely be the culprit particularly given the lack of associated objective ischemic findings as noted above. Nonetheless, we discussed at great length relative risk versus benefit of repeating his coronary angiogram. He is feeling much better with very mild chest pressure on heparin infusion. He had no response to sublingual nitroglycerin admission or yesterday. After lengthy discussion with my interventional partner Dr. Valencia he recommends continued heparin infusion, clopidogrel, and nitrates as tolerated along with trending troponins. While he agrees repeat coronary angiography would be advised concern is it is not clear what he may be able to intervene upon to improve his circumstances as it will be likely he would usp off RV marginal branches if in fact his RCA stenosis was more unstable. If he had unstable plaque with rupture in the LAD distribution we would expect at a minimum ECG changes and likely wall motion abnormalities by echocardiogram none of which are present. If he develops any progression in his symptoms, significant ongoing rise troponin or new ECG changes/hemodynamic instability he will be taken back to cardiac catheterization lab immediately. We discussed trying to balance risks with repeat angiography versus benefits given his known anatomy. Multiple other diagnoses are being considered the GI etiology, musculoskeletal, pulmonary/embolism, myocarditis/pericarditis, aortic pathology. CT angiogram of the chest abdomen pelvis was unremarkable at presentation, his clinical picture is not consistent with pulmonary embolism given lack of tachycardia, shortness of breath/hypoxia and given the degree of troponin elevation if related to a pulmonary embolism such a degree of rise would be indicative of a life-threatening embolic process. His ECG is not consistent with pericarditis and will be unclear clinically why he would have developed myocarditis. Nonetheless, management options are limited in this regard given concern with anticoagulant therapy med associated risks was anti-inflammatories or steroids particularly given underlying concern with NSTEMI. As such, further close observation with patient's clinical status,
[2024-03-06] MEDS: NITROGLYCERIN OINTMENT 1 INCH DOSE TRANSDERM ×2 (11:01→18:15)
[2024-03-06] MEDS: HEPARIN SODIUM 5,000 UNITS/ML VIAL 3500 UNITS IV PUSH (11:25)
[2024-03-06] MEDS: ACETAMINOPHEN 325 MG TABLET 650 MG PO (15:55)
[2024-03-06 17:37] LABS: Partial Thromboplastin Time 127.7 Seconds (22.3-36.8)
[2024-03-06] MEDS: LATANOPROST 0.005% OP SOLN 2.5 ML BTL 1 DROP EACH EYE (20:48)
[2024-03-06] MEDS: EZETIMIBE 10 MG TABLET PO (20:48)
[2024-03-07] VITALS (17 sets, daily range): BP systolic 111–136; BP diastolic 61–75; PULSE 55–72; RESP 14–16; TEMP 36.4–37.2; O2SAT 97–100
[2024-03-07] MEDS: ACETAMINOPHEN 325 MG TABLET 650 MG PO (00:02)
[2024-03-07] MEDS: NITROGLYCERIN OINTMENT 1 INCH DOSE 0.5 INCH TRANSDERM ×2 (00:03→05:13)
[2024-03-07 00:48] LABS: Partial Thromboplastin Time 91.5 Seconds (22.3-36.8)
[2024-03-07] MEDS: HEPARIN SOD/D5W 100 UNITS/ML 25,000 UNITS/250 ML BAG 10 UNITS IV CONT (03:33)
[2024-03-07] MEDS: SODIUM CHLORIDE 0.9% IV 1,000 ML 100 ML IV CONT ×3 (03:34→22:58)
[2024-03-07 06:43] LABS: Basophils Absolute Auto 0.1 K/mm3 (0.0-0.1); Basophils Percent Auto 0.7 % (0.2-1.2); Eosinophils Absolute Auto 0.3 K/mm3 (0-0.3); Eosinophils Percent Auto 3.1 % (0-4.4); Hematocrit 44.8 % (42.0-52.0); Hemoglobin 14.3 g/dL (14.0-18.0); Immature Granulocyte Absolute 0.03 K/mm3 (0.00-0.031); Immature Granulocyte Percent A 0.4 % (0-0.5); Lymphocytes Absolute Auto 3.74 K/mm3 (0.9-3.2); Lymphocytes Percent Auto 44.2 % (18.3-44.2); Mean Corpuscular HGB Conc 31.9 g/dl (32-36); Mean Corpuscular Hemoglobin 31.8 pg (26-34); Mean Corpuscular Volume 99.8 fl (80-100); Mean Platelet Volume 9.9 fl (7.4-10.4); Monocytes Absolute Auto 0.6 K/mm3 (0.1-0.6); Monocytes Percent Auto 7.4 % (2.6-8.5); Neutrophils Absolute Auto 3.7 K/mm3 (1.3-6.7); Neutrophils Percent Auto 44.2 % (45.5-73.1); Platelet Count Result 207 k/mm3 (150-375); Red Blood Count 4.49 M/mm3 (4.6-6.20); Red Cell Distribution Width 13.2 % (11.5-14.5); White Blood Count 8.5 K/mm3 (4.5-10.0)
[2024-03-07 06:54] LABS: Alanine Aminotransferase 23 U/L (6-50); Albumin Level 3.6 g/dL (3.5-5.1); Alkaline Phosphatase 61 U/L (38-126); Anion Gap 0 mmol/L (4-12); Aspartate Amino Transferase 34 U/L (17-59); Bilirubin,Total 0.7 mg/dL (0.2-1.3); Blood Urea Nitrogen 13 mg/dL (9-20); Calcium 8.7 mg/dL (8.4-10.2); Carbon Dioxide 28 mmol/L (22-30); Chloride 110 mmol/L (98-107); Estimated CRCL calculation 54 ml/min; Estimated Glomerular Filt Rate 59; Glucose 118 mg/dL (65-110); Magnesium 2.4 mg/dL (1.6-2.3); Potassium 4.4 mmol/L (3.4-5.0); Sodium 138 mmol/L (137-145)
[2024-03-07 06:55] LABS: Partial Thromboplastin Time 77.1 Seconds (22.3-36.8)
--- NOTE | 2024-03-07 08:42 | PM.PNCARD ---
Progress Note: A&P Assessment and Plan (1) Acute non-ST elevation myocardial infarction (NSTEMI): Code(s): I21.4 - Non-ST elevation (NSTEMI) myocardial infarction Status: Acute Assessment and Plan: Patient presents with concerning unstable anginal symptoms with mild troponin elevation peaking at 0.8 for which coronary angiography was performed and revealed up to 70% stenosis in RCA small caliber vessel just prior to bifurcation of small 1st and 2nd RV marginal branches. He had nonobstructive disease in the LAD and circumflex with a small hazy segment in the mid LAD but with LAWRENCE 3 flow throughout. He had been pain free but then last night developed progressive chest pain with associated nausea abdominal discomfort with initial decline in repeat troponin to 0.7 subsequent increase to 1.2 and peaking at 4.4, 4.7 then trending downward. -continue clopidogrel 75 mg daily along with heparin infusion along with aspirin, statin, beta-omid therapy. -Continue nitroglycerin paste and observe tolerance and response in this regard. -given unusual circumstances and recurrent severe chest pain with significant troponin bump even after admission repeat coronary angiography advised to reassess coronary anatomy given concern for new ruptured plaque and further risk assess moving forward. We discussed pros and cons in this regard. He verbalized understanding and agreed with plan of care. NPO after midnight for coronary angiography tomorrow. (2) CAD (coronary artery disease): Code(s): I25.10 - Atherosclerotic heart disease of [place] coronary artery without angina pectoris Status: Acute Assessment and Plan: As above, borderline obstructive 70% stenosis RCA is small caliber vessel just prior to bifurcation of small 1st and 2nd RV marginal branch, nonobstructive diffuse disease in LAD, focal nonobstructive disease in the circumflex with a mid LAD small segment hazy stenosis which appears mild in severity with LAWRENCE 3 flow. No associated wall motion abnormalities or ECG changes. Continue aggressive medical therapy with aspirin 81 mg daily, Toprol XL 25 mg daily, Zetia 10 mg daily, atorvastatin 80 mg daily. (3) Elevated lipase: Code(s): R74.8 - Abnormal levels of other serum enzymes Status: Acute Assessment and Plan: Most likely secondary to inflammatory response secondary to nausea, emesis in setting of NSTEMI. No clinical evidence of pancreatitis at this time with a negative CTA within 24 hours. (4) HLD (hyperlipidemia): Qualifiers: Hyperlipidemia type: mixed hyperlipidemia Qualified Code(s): E78.2 - Mixed hyperlipidemia Code(s): E78.5 - Hyperlipidemia, unspecified Status: Chronic Assessment and Plan: LDL control presentation. Will initiate statin as tolerated. Continue Zetia. (5) Epigastric pain: Code(s): R10.13 - Epigastric pain Status: Resolved Assessment and Plan: Most likely consequence of myocardial ischemia given elevated troponin. Continue pantoprazole 40 mg daily. Subjective Date/time seen: Date of service: 03/07/24 08:42 Interval history: Follow-up for NSTEMI Date of service 03/07/2024: Patient denies chest pain of any kind or discomfort. Doing well. No shortness of breath or palpitations. Patient was relatively hypotensive for time last night, nitroglycerin paste reduced with stabilization. Son at bedside. Lengthy discussion once again held with the patient regarding plan of care and recommendation for repeat coronary angiography Review of Systems Constitutional: Constitutional: Reports no additional constitutional complaints Eyes: Eyes: Reports no additional eye complaints ENT: Reports system reviewed and no additional complaints, except as documented Cardiovascular: Cardiovascular: Reports as per HPI Respiratory: Respiratory: Reports no additional respiratory complaints Gastrointestinal: Gastrointestinal: Report
[2024-03-07] MEDS: ASPIRIN 81 MG ENTERIC TABLET PO (08:52)
[2024-03-07] MEDS: CLOPIDOGREL BISULFATE 75 MG TABLET PO (08:52)
[2024-03-07] MEDS: ATORVASTATIN 40 MG TABLET 80 MG PO (08:52)
[2024-03-07] MEDS: PANTOPRAZOLE 40 MG TABLET PO (08:52)
[2024-03-07] MEDS: METOPROLOL SUCCINATE EXT REL 25 MG TABCR PO (08:52)
--- NOTE | 2024-03-07 10:56 | PM.IMPN ---
Progress Note: A&P Assessment and Plan (1) Acute non-ST elevation myocardial infarction (NSTEMI): Code(s): I21.4 - Non-ST elevation (NSTEMI) myocardial infarction Status: Acute Assessment and Plan: Presented to the ED with complaints of chest pain. History of cardiac catheterization x2 with negative findings He had unremarkable EKGs, however elevated troponin which is still trending up - last troponin was 2.29. Continue to trend to peak CXR and CTA of the chest unremarkable with no evidence of pulmonary embolism He has been seen in consultation by Cardiology and underwent cardiac catheterization on 03/05/2024 - no acute intervention was required. Catheterization demonstrated 70% stenosis of RV acute marginal branch which will be managed medically. aspirin and metoprolol Continue heparin drip at this time; will await further cardiology recommendations Cardiac catheterization planned for tomorrow 03/08 (2) Epigastric pain: Code(s): R10.13 - Epigastric pain Status: Resolved Assessment and Plan: Overnight developed recurrence of chest pain, however was more localized in epigastric region. Has history of complete large colon resection due to recurrent colon cancer CTA of chest/abdomen/pelvis at time of admission was unremarkable Did have positive Mane sign on exam initially and right upper quadrant ultrasound was ordered which is unremarkable with negative sonographic mane sign. Exam is unremarkable at this time and his symptoms have resolved Lipase was minimally elevated, 383. Repeat lipase yesterday was 299. Tolerating heart healthy diet (3) HLD (hyperlipidemia): Qualifiers: Hyperlipidemia type: mixed hyperlipidemia Qualified Code(s): E78.2 - Mixed hyperlipidemia Code(s): E78.5 - Hyperlipidemia, unspecified Status: Chronic Assessment and Plan: Lipid panel reviewed with elevated triglycerides (218), otherwise unremarkable Continue Zetia Home praluent is nonformulary Adjust therapy as indicated (4) BPH (benign prostatic hyperplasia): Qualifiers: Lower urinary tract symptom presence: symptoms absent Qualified Code(s): N40.0 - Benign prostatic hyperplasia without lower urinary tract symptoms Code(s): N40.0 - Benign prostatic hyperplasia without lower urinary tract symptoms Status: Chronic Assessment and Plan: Voiding without difficulty Continume home silodosin and finasteride Subjective Date/time seen: 03/07/24 10:56 Interval history: Patient sitting up in bed this morning in no distress. He denies abdominal pain, cramping, or bloating. He denies any chest pain or pressure. Cardiology saw him this morning and discussed cardiac cath tomorrow. He has been stable overnight with no acute events. Review of Systems Review of Systems: All systems reviewed & are unremarkable except as noted in HPI and below Exam Narrative: General: well-appearing, comfortable, no acute distress, sitting up in bed HEENT: Normocephalic, atraumatic, PERRLA, EOMI Respiratory: Lungs clear to auscultation bilaterally; normal respiratory effort Cardio: RRR, no murmurs; no peripheral edema Abdomen: Nondistended, soft, nontender, BS active in all 4 quadrants Skin: Normal color, warm and dry, no rashes or lesions Neurologic: Awake, alert and oriented x4, speech clear, no focal deficits Psychiatric: Appropriate mood and affect, pleasant and cooperative Objective Data Vital Signs Vital Signs: Vital Signs - 24 hr 03/06/24 12:00 03/06/24 12:00 03/06/24 14:00 Temperature 97.5 F L Pulse Rate 68 60 69 Respiratory Rate 17 Blood Pressure 102/53 L Pulse Oximetry 96 Oxygen Delivery 03/06/24 16:00 03/06/24 16:00 03/06/24 18:00 Temperature 98.4 F Pulse Rate 65 70 65 Respiratory Rate 17 Blood Pressure 103/59 L Pulse Oximetry 97 Oxygen Delivery 03/06/24 19:44 03/06/24 20:25 03/06/24
[2024-03-07] MEDS: LATANOPROST 0.005% OP SOLN 2.5 ML BTL 1 DROP EACH EYE (20:37)
[2024-03-07] MEDS: EZETIMIBE 10 MG TABLET PO (20:37)
[2024-03-08] VITALS (39 sets, daily range): BP systolic 116–162; BP diastolic 53–88; PULSE 54–70; RESP 12–22; TEMP 36.1–36.6; O2SAT 95–100
[2024-03-08] MEDS: HEPARIN SOD/D5W 100 UNITS/ML 25,000 UNITS/250 ML BAG 10 UNITS IV CONT (04:44)
[2024-03-08] MEDS: HEPARIN SODIUM 5,000 UNITS/ML VIAL 3500 UNITS IV PUSH (05:21)
--- NOTE | 2024-03-08 08:55 | PM.PNCARD ---
Progress Note: A&P Assessment and Plan (1) Acute non-ST elevation myocardial infarction (NSTEMI): Code(s): I21.4 - Non-ST elevation (NSTEMI) myocardial infarction Status: Acute Plan 73-year-old man with: Ischemic heart disease presenting last week with acute coronary syndrome/non ST elevation [place]. angiography on Friday demonstrated proximal right coronary disease in a small caliber codominant right coronary artery. The lesion is proximal with 2 side branches in the vicinity of the stenosis hence the decision/intention to treat this medically. Despite this he had more symptoms on Friday and another rise in his troponin level. Likely discussion again was had with the patient about the options of more aggressive medical therapy versus PCI of this lesion. With the understanding that at least 1 if not both of the side branches will likely be occluded/sacrificed as a consequence of this he would like to proceed with revascularization and because of his clinical situation I would tend to agree with this. Luís Alston MD [facility] Subjective Date/time seen: Date of service: 03/08/24 08:55 Interval history: Follow-up for NSTEMI Date of service 03/07/2024: Patient denies chest pain of any kind or discomfort. Doing well. No shortness of breath or palpitations. Patient was relatively hypotensive for time last night, nitroglycerin paste reduced with stabilization. Son at bedside. Lengthy discussion once again held with the patient regarding plan of care and recommendation for repeat coronary angiography Date of service 03/08/2024: Patient is feeling better this morning and is essentially asymptomatic. Long discussion about the advantages and disadvantages of bring him back to the laboratory clerk with the idea/intention of performing a proximal RCA intervention. Expect that 1 or both of the side branches that are in the region of the proximal RCA disease will likely be sacrificed by that procedure. After the lengthy discussion the it is the patient's and my impression that we should proceed with PCI of this disease because of the symptoms that he experienced again on Friday morning. Exam Const: General: comfortable and no acute distress Other: Very Pleasant and cooperative well-developed well-nourished white male appearing about his stated age sitting upright in bed no apparent distress breathing comfortably speaking in full sentences. HENMT: Mouth: Yes moist mucous membranes Eyes: Sclera: sclerae normal Neck: Neck: supple and no JVD Other: No audible carotid bruits Resp: Effort & Inspection: normal respiratory effort Auscultation: clear to auscultation bilaterally Cardio: Rate: regular rate Rhythm: regular rhythm Other: PMI is not displaced no murmur no gallop, no rubs or clicks. GI: Auscultation: normal bowel sounds Other: Previous midline abdominal scar from colon resection Skin: General skin exam: normal color Neuro: Other: Alert and oriented x3 nonfocal exam Extrem: Other: No edema, adequate arterial pulses no hematoma, bleeding at right groin arterial access site, lower extremities well perfused. Psych: Other: Mood calm and appropriate Objective Data Vital Signs Vital Signs: Vital Signs - 24 hr 03/07/24 10:00 03/07/24 11:29 03/07/24 12:00 Temperature 36.8 C Pulse Rate 64 59 L Respiratory Rate 14 Blood Pressure 130/72 Pulse Oximetry 100 Oxygen Delivery Room Air 03/07/24 12:00 03/07/24 14:00 03/07/24 16:00 Temperature Pulse Rate 66 64 Respiratory Rate Blood Pressure Pulse Oximetry Oxygen Delivery Room Air 03/07/24 16:00 03/07/24 16:00 03/07/24 18:00 Temperature 37.2 C Pulse Rate 64 63 64 Respiratory Rate 16 Blood Pressure 119/61 Pulse Oximetry 99 Oxygen Delivery 03/07/24 20:06 03/07/24 20:00 03/07/24 21:54 Temperature 36.6 C Pulse Rate 63 62 60 Respiratory Rate 16 Blood Pressur
[2024-03-08 09:22] LABS: Basophils Absolute Auto 0.1 K/mm3 (0.0-0.1); Basophils Percent Auto 0.7 % (0.2-1.2); Eosinophils Absolute Auto 0.3 K/mm3 (0-0.3); Eosinophils Percent Auto 3.9 % (0-4.4); Hematocrit 42.8 % (42.0-52.0); Hemoglobin 13.9 g/dL (14.0-18.0); Immature Granulocyte Absolute 0.03 K/mm3 (0.00-0.031); Immature Granulocyte Percent A 0.4 % (0-0.5); Lymphocytes Absolute Auto 3.96 K/mm3 (0.9-3.2); Lymphocytes Percent Auto 46.5 % (18.3-44.2); Mean Corpuscular HGB Conc 32.5 g/dl (32-36); Mean Corpuscular Hemoglobin 32.4 pg (26-34); Mean Corpuscular Volume 99.8 fl (80-100); Mean Platelet Volume 10.7 fl (7.4-10.4); Monocytes Absolute Auto 0.7 K/mm3 (0.1-0.6); Monocytes Percent Auto 8.7 % (2.6-8.5); Neutrophils Absolute Auto 3.4 K/mm3 (1.3-6.7); Neutrophils Percent Auto 39.8 % (45.5-73.1); Platelet Count Result 208 k/mm3 (150-375); Red Blood Count 4.29 M/mm3 (4.6-6.20); Red Cell Distribution Width 13.3 % (11.5-14.5); White Blood Count 8.5 K/mm3 (4.5-10.0)
[2024-03-08] MEDS: PANTOPRAZOLE 40 MG TABLET PO (09:32)
[2024-03-08] MEDS: METOPROLOL SUCCINATE EXT REL 25 MG TABCR PO (09:32)
[2024-03-08] MEDS: SODIUM CHLORIDE 0.9% IV 1,000 ML 100 ML IV CONT (09:32)
[2024-03-08] MEDS: CLOPIDOGREL BISULFATE 300 MG TABLET PO (09:32)
[2024-03-08] MEDS: ATORVASTATIN 40 MG TABLET 80 MG PO (09:33)
[2024-03-08] MEDS: ASPIRIN 81 MG ENTERIC TABLET PO (09:33)
[2024-03-08] MEDS: FINASTERIDE 5 MG TABLET PO (09:38)
--- NOTE | 2024-03-08 09:43 | PC.NURSE ---
Dr. Alston on the floor, ordered 300mg Plavix, verbal order to hold 75mg dose and just give the 300mg Plavix prior to going to geotechnical laboratory technician.
[2024-03-08 09:44] LABS: Alanine Aminotransferase 29 U/L (6-50); Albumin Level 3.5 g/dL (3.5-5.1); Alkaline Phosphatase 68 U/L (38-126); Anion Gap 5 mmol/L (4-12); Aspartate Amino Transferase 36 U/L (17-59); Bilirubin,Total 0.5 mg/dL (0.2-1.3); Blood Urea Nitrogen 15 mg/dL (9-20); Calcium 8.9 mg/dL (8.4-10.2); Carbon Dioxide 26 mmol/L (22-30); Chloride 110 mmol/L (98-107); Estimated CRCL calculation 50 ml/min; Estimated Glomerular Filt Rate 54; Glucose 104 mg/dL (65-110); Magnesium 2.2 mg/dL (1.6-2.3); Potassium 4.3 mmol/L (3.4-5.0); Sodium 141 mmol/L (137-145)
[2024-03-08 11:39] LABS: Partial Thromboplastin Time 134.9 Seconds (22.3-36.8)
--- NOTE | 2024-03-08 12:47 | PM.IMPN ---
Progress Note: A&P Assessment and Plan (1) Acute non-ST elevation myocardial infarction (NSTEMI): Code(s): I21.4 - Non-ST elevation (NSTEMI) myocardial infarction Status: Acute Assessment and Plan: Presented to the ED with complaints of chest pain. History of cardiac catheterization x2 with negative findings He had unremarkable EKGs, however elevated troponin which is still trending up - last troponin was 2.29. Continue to trend to peak CXR and CTA of the chest unremarkable with no evidence of pulmonary embolism He has been seen in consultation by Cardiology and underwent cardiac catheterization on 03/05/2024 - no acute intervention was required. Catheterization demonstrated 70% stenosis of RV acute marginal branch which will be managed medically. aspirin and metoprolol Plavix, statin therapy Continue heparin drip at this time; will await further cardiology recommendations Cardiac catheterization planned for today (2) Epigastric pain: Code(s): R10.13 - Epigastric pain Status: Resolved (3) HLD (hyperlipidemia): Qualifiers: Hyperlipidemia type: mixed hyperlipidemia Qualified Code(s): E78.2 - Mixed hyperlipidemia Code(s): E78.5 - Hyperlipidemia, unspecified Status: Chronic Assessment and Plan: Lipid panel reviewed with elevated triglycerides (218), otherwise unremarkable Continue Zetia Home praluent is nonformulary Adjust therapy as indicated (4) BPH (benign prostatic hyperplasia): Qualifiers: Lower urinary tract symptom presence: symptoms absent Qualified Code(s): N40.0 - Benign prostatic hyperplasia without lower urinary tract symptoms Code(s): N40.0 - Benign prostatic hyperplasia without lower urinary tract symptoms Status: Chronic Assessment and Plan: Voiding without difficulty Continume home silodosin and finasteride Subjective Date/time seen: 03/08/24 12:47 Interval history: Patient sitting up in bed this morning in no distress. He denies abdominal pain, cramping, or bloating. He denies any chest pain or pressure. Cardiology to take for second cardiac cath today. He has been stable overnight with no acute events. HR intermittently bradycardic, will continue to follow cardiology recs. Review of Systems Review of Systems: All systems reviewed & are unremarkable except as noted in HPI and below Exam Narrative: General: well-appearing, comfortable, no acute distress, sitting up in bed HEENT: Normocephalic, atraumatic, PERRLA, EOMI Respiratory: Lungs clear to auscultation bilaterally Cardio: RRR, no murmurs; no peripheral edema Abdomen: Nondistended, soft, nontender, BS active in all 4 quadrants Skin: Normal color, warm and dry, no rashes or lesions Neurologic: Awake, alert and oriented x4, speech clear, no focal deficits Psychiatric: Appropriate mood and affect, pleasant and cooperative Objective Data Vital Signs Vital Signs: Vital Signs - 24 hr 03/07/24 14:00 03/07/24 16:00 03/07/24 16:00 Temperature 98.9 F Pulse Rate 64 64 Respiratory Rate 16 Blood Pressure 119/61 Pulse Oximetry 99 Oxygen Delivery Room Air 03/07/24 16:00 03/07/24 18:00 03/07/24 20:06 Temperature 97.8 F Pulse Rate 63 64 63 Respiratory Rate 16 Blood Pressure 126/70 Pulse Oximetry 99 Oxygen Delivery 03/07/24 20:00 03/07/24 21:54 03/07/24 22:59 Temperature 97.5 F L Pulse Rate 62 60 63 Respiratory Rate 16 Blood Pressure 118/68 Pulse Oximetry 97 Oxygen Delivery 03/07/24 23:51 03/08/24 00:00 03/08/24 02:00 Temperature Pulse Rate 60 59 L Respiratory Rate Blood Pressure Pulse Oximetry Oxygen Delivery Room Air 03/08/24 04:13 03/08/24 04:00 03/08/24 05:55 Temperature 97.8 F Pulse Rate 69 56 L 59 L Respiratory Rate 16 Blood Pressure 127/85 Pulse Oximetry 100 Oxygen Delivery 03/08/24 04:00 03/08/24 07:53 03/08/24 09:32 T
--- NOTE | 2024-03-08 13:27 | PC.NURSE ---
pt to CCL
--- NOTE | 2024-03-08 14:20 | WPDCARDPROC ---
Cardiac Cath Procedure Note Date of procedure:: 03/08/24 Performing physician:: Luís Alston MD Indication:: coronary angiography PCI(BRITANY) to the proximal RCA with PTCA of acute marginal branch Brief clinical history:: this is a 73-year-old man with no previous history of coronary disease who presented last week with chest pain and evidence of non ST elevation MT. he was found to have mild non flow-limiting disease in the left coronary artery and a moderate stenosis of 70% in the proximal RCA as well as 80-90% stenosis at the origin of a RV acute marginal branch at the site of this stenosis. Medical therapy of this was recommended however with weekend he continued to have episodes of chest pain and further rise in his troponin and so returned back to laboratory asst today for more aggressive treatment Procedure Procedure performed:: left coronary angiography right coronary angiography PCI(BRITANY) to the proximal right coronary artery as well as PTCA of ostium of acute marginal branch Sedation/Medication given:: fentanyl 50 mg Versed 2 mg case start time 1:34 p.m. case end time 2:14 p.m. sedation provided by Lisandra Payne RN, trained observer Access site:: right femoral artery Estimated blood loss:: 25 cc Procedure note:: patient was brought to the cardiac catheterization lab in the postabsorptive state where the right and left femoral triangles were prepared and draped in the normal fashion. 1% lidocaine was infiltrated in the left femoral triangle however I did not successfully gain access to the left femoral artery. For this reason 1% lidocaine was then infiltrated to the right groin and the right femoral artery was punctured following which a 6 Ukrainian vascular sheath was placed. I used a 5 Ukrainian FL4 catheter to engage and inject the left coronary artery in orthogonal projections. Following this I used a 6 Ukrainian JR4 guiding catheter with side holes to engage the right coronary artery for angiography and for PCI. Patient had been receiving aspirin and had been loaded with clopidogrel on the floor. He for that reason did not receive any additional anti-platelet therapy in the laboratory asst. He was anticoagulated with bolus and infusion of bivalirudin for this intervention. Following completion of right coronary PCI as mentioned in detailed below the sheath was sutured into position he was taken to the holding area for manual sheath removal and recovery. Procedure was well tolerated and uncomplicated. Findings:: The left main coronary artery is nicely patent the left anterior descending is a medium caliber artery extending down to the apex. The LAD has mild diffuse luminal irregularity but no flow-limiting disease is identified. There is some mild myocardial bridge in noted in the midportion of the LAD. The circumflex is a moderate to large caliber artery giving rise to marginal branches and a left posterior branch as well. The circumflex is codominant and has mild diffuse atherosclerosis in the trunk no more than 20-30% stenosis is identified. The right coronary artery is a medium caliber codominant vessel with moderate stenosis in the proximal portion is described on Friday about 70%. There is about 80-90% at the origin of a acute marginal RV branch at the site of this lesion as well. There are 2 acute marginal branches at this segment of the RCA making this a trifurcation lesion. There was LAWRENCE 3 flow in the vessel. Intervention: The right coronary artery was engaged as described above a 0.014 Kep'El wire was used to wire the main channel of the RCA was passed easily into the RPDA. I then pre-dilated the lesion 2.5 x 20 mm Panterra balloon at nominal pressure. Following this the target lesion was treated with 3.0 x 18 mm Weatherista drug-eluting stent deployed at 10 atmospheres with an excellent anatomical result at the target lesion in the channel of the RCA proper. Following stent deployment there wa
[2024-03-08] MEDS: SODIUM CHLORIDE 0.9% IV 1,000 ML 125 ML IV CONT (18:30)
--- NOTE | 2024-03-08 18:40 | SUR.PHASEII ---
PT. RETURNED TO IMU 210 VIA STRETCHER AFTER PHASE II RECOVERY COMPLETE IN POWER CHISEL OPERATOR 3. REPORT HAS BEEN CALLED TO [facility]. BEDREST CONTINUES UNTIL 2333. IVF'S RUNNING AT 125ML/HR ORDERED. R. GROIN DRESSING C/D/I. SITE SOFT, NONTENDER; NO BLEEDING OR HEMATOMA NOTED. DENIES CP OR PRESSURE. STENT CARD GIVEN TO PT'S . HOB NOW UP 30 DEGREES FOR MEAL.
[2024-03-08] MEDS: LATANOPROST 0.005% OP SOLN 2.5 ML BTL 1 DROP EACH EYE (20:30)
[2024-03-08] MEDS: EZETIMIBE 10 MG TABLET PO (20:30)
[2024-03-09] VITALS (10 sets, daily range): BP systolic 118–139; BP diastolic 59–73; PULSE 57–68; RESP 16–20; TEMP 35.7–36.6; O2SAT 93–99
[2024-03-09 04:28] LABS: Hematocrit 42.7 % (42.0-52.0); Hemoglobin 13.7 g/dL (14.0-18.0); Mean Corpuscular HGB Conc 32.1 g/dl (32-36); Mean Corpuscular Hemoglobin 31.9 pg (26-34); Mean Corpuscular Volume 99.3 fl (80-100); Platelet Count Result 210 k/mm3 (150-375); White Blood Count 7.7 K/mm3 (4.5-10.0)
[2024-03-09 04:42] LABS: Anion Gap 5 mmol/L (4-12); Blood Urea Nitrogen 15 mg/dL (9-20); Carbon Dioxide 23 mmol/L (22-30); Chloride 111 mmol/L (98-107); Estimated CRCL calculation 54 ml/min; Estimated Glomerular Filt Rate 59; Glucose 132 mg/dL (65-110); Potassium 4.1 mmol/L (3.4-5.0); Sodium 139 mmol/L (137-145)
[2024-03-09] MEDS: ASPIRIN 81 MG CHEWABLE TABLET PO (08:34)
[2024-03-09] MEDS: PANTOPRAZOLE 40 MG TABLET PO (08:35)
[2024-03-09] MEDS: CLOPIDOGREL BISULFATE 75 MG TABLET PO (08:35)
[2024-03-09] MEDS: ATORVASTATIN 40 MG TABLET 80 MG PO (08:35)
[2024-03-09] MEDS: METOPROLOL SUCCINATE EXT REL 25 MG TABCR PO (08:35)
--- NOTE | 2024-03-09 09:09 | PCCPR ---
Patient visited at bedside. Cardiac rehab program explained and information given. Patient verbalized understanding. Will follow up after discharge.
--- NOTE | 2024-03-09 10:04 | PM.PNCARD ---
Progress Note: A&P Assessment and Plan (1) Acute non-ST elevation myocardial infarction (NSTEMI): Code(s): I21.4 - Non-ST elevation (NSTEMI) myocardial infarction Status: Acute Plan Patient is stable for discharge today. His aspirin, Plavix, beta-omid and atorvastatin should be continued. He is in the process of getting Praluent approved by his insurance company as he had difficulty tolerating statins in the past. For the short term he should stay on atorvastatin until this issue is settled 1 way or the other. I will see him in the office in follow-up in about 1 month at which time this issue should be resolved I would hope. Luís Alston MD [facility] Subjective Date/time seen: Date of service: 03/09/24 10:04 Interval history: Follow-up for NSTEMI Date of service 03/07/2024: Patient denies chest pain of any kind or discomfort. Doing well. No shortness of breath or palpitations. Patient was relatively hypotensive for time last night, nitroglycerin paste reduced with stabilization. Son at bedside. Lengthy discussion once again held with the patient regarding plan of care and recommendation for repeat coronary angiography Date of service 03/08/2024: Patient is feeling better this morning and is essentially asymptomatic. Long discussion about the advantages and disadvantages of bring him back to the laborer road with the idea/intention of performing a proximal RCA intervention. Expect that 1 or both of the side branches that are in the region of the proximal RCA disease will likely be sacrificed by that procedure. After the lengthy discussion the it is the patient's and my impression that we should proceed with PCI of this disease because of the symptoms that he experienced again on Friday morning. Date of service 03/09/2024: Patient is feeling well this morning ambulatory around the floor is asymptomatic. No further ischemic symptoms following PCI of the proximal right coronary artery yesterday as detailed in the laborer road note. Exam Const: General: comfortable and no acute distress Other: Very Pleasant and cooperative well-developed well-nourished white male appearing about his stated age sitting upright in bed no apparent distress breathing comfortably speaking in full sentences. HENMT: Mouth: Yes moist mucous membranes Eyes: Sclera: sclerae normal Neck: Neck: supple and no JVD Other: No audible carotid bruits Resp: Effort & Inspection: normal respiratory effort Auscultation: clear to auscultation bilaterally Cardio: Rate: regular rate Rhythm: regular rhythm Other: PMI is not displaced no murmur no gallop, no rubs or clicks. GI: Auscultation: normal bowel sounds Other: Previous midline abdominal scar from colon resection Skin: General skin exam: normal color Neuro: Other: Alert and oriented x3 nonfocal exam Extrem: Other: No edema, adequate arterial pulses no hematoma, bleeding at right groin arterial access site, lower extremities well perfused. Psych: Other: Mood calm and appropriate Objective Data Vital Signs Vital Signs: Vital Signs - 24 hr 03/08/24 11:29 03/08/24 12:00 03/08/24 14:30 Temperature 36.1 C L Pulse Rate 57 L 58 L 64 Respiratory Rate 18 18 Blood Pressure 142/68 H 137/79 Pulse Oximetry 100 97 Oxygen Delivery Room Air 03/08/24 14:45 03/08/24 15:00 03/08/24 15:15 Temperature Pulse Rate 54 L 61 56 L Respiratory Rate 16 22 H 17 Blood Pressure 132/73 134/69 131/76 Pulse Oximetry 95 96 95 Oxygen Delivery Room Air Room Air Room Air 03/08/24 15:30 03/08/24 15:45 03/08/24 16:00 Temperature Pulse Rate 57 L 59 L 58 L Respiratory Rate 17 18 18 Blood Pressure 126/74 133/78 143/79 H Pulse Oximetry 95 96 98 Oxygen Delivery Room Air Room Air Room Air 03/08/24 16:15 03/08/24 17:00 03/08/24 17:05 Temperature Pulse Rate 60 59 L 57 L Respiratory Rate 18 12 14 Blood Pressure 135/79 162/82 H 158/88
--- NOTE | 2024-03-09 11:37 | PM.DS ---
DS: Admitting Diagnosis Discharge Date 03/09/24 Admitting Diagnosis NSTEMI HLD BPH DS: Summary Hospital Course Reason for hospitalization: NSTEMI HLD BPH Hospital Course: This is a 73 year old male who presented to the hospital on 03/05/24 with complaints of chest pain. Work up in the hospital revealed a NSTEMI. Patient was taken to cardiac clinical laboratory service teacher on 03/05/2024 where they found a 70% stenosis seen in the RV acute marginal branch however they were going to treat this with just medical therapy and no intervention at that time. They started aspirin and beta omid to the regimen. Overnight the patient developed symptomatic chest pain and patient was started on a heparin drip per Cardiology. He was later taken on 03/08/2024 to the cardiac clinical laboratory service teacher and a stent placed to his RCA. He was placed on Aspirin, Plavix, metoprolol, and Atorvastatin 80 mg daily by cardiology. Echo was performed and shown an LV systolic function with an EF of 60-65%, mildly increased left ventricular wall thickness, normal RV systolic function. On examination today patient is alert oriented x3, sitting in the chair. He denies any fever, chills, nausea, vomiting, diarrhea, abdominal pain, chest pain, shortness a breath. He is stable for discharge at this time. He will need to follow up with Cardiology in 2 weeks. He will also need to continue Plavix, aspirin, metoprolol, and atorvastatin as prescribed. Final diagnosis: NSTEMI, coronary artery disease, hyperlipidemia Status at Discharge Cognitive/behavioral status at discharge: Alert and oriented x4 Functional status at discharge: independent ambulation Overall status at discharge: patient is progressing back to baseline Time Spent with Patient Time attestation: Total time spent providing and/or coordinating discharge services: Time spent: Greater than 30 minutes Exam Narrative: General: In no acute distress, well nourished Head: atraumatic, no encephalopathy Eyes: EOMI, PERRLA, sclera clear ENT: moist mucous membranes, nasal passages clear Neck: supple, no JVD, no adenopathy, trachea midline Cardiac: Normal S1 and S2. RRR, No murmur, gallops or friction rubs, peripheral pulses intact. Respiratory: Lungs clear to auscultation, no adventitious lung sounds, currently on room air. Gastrointestinal: soft, non-distended, non-tender, normoactive bowel sounds. : voiding without difficulty. Extremities: moves all extremities well, no edema, good ROM, strength 5/5 Skin: clean, dry, intact. No wounds or lesions. Neuro: Alert and oriented x4, cranial nerves intact, no neuro deficits. Psych: normal mood, normal affect, interactive DS: Data Data Completed and Pending Completed studies during hospitalization: Chest/abdomen/pelvis CTA Chest x-ray Abdomen ultrasound Pending studies at discharge: None Labs on day of discharge: Labs from last 24 hours 03/09/24 03/08/24 03:53 11:20 WBC 7.7 RBC 4.30 L Hgb 13.7 L Hct 42.7 MCV 99.3 MCH 31.9 MCHC 32.1 RDW 13.0 Plt Count 210 MPV 10.0 APTT 134.9 H Sodium 139 Potassium 4.1 Chloride 111 H Carbon Dioxide 23 Anion Gap 5 BUN 15 Creatinine 1.20 Estim Creat Clear Calc 54 Estimated GFR 59 Glucose 132 H Calcium 9.0 Procedures/Treatments: Cardiac catheterization with stent to the RCA Discharge Plan Discharge Attending physician on discharge: Carrie Kyle Consulting providers: Luís Alston Discharging Clinician: Vesta Correa Anticipated Discharge Date/Time: 03/09/24 11:26 Patient Disposition: Home, Self-Care Activity: other - see discharge instructions Diet: heart healthy Wound Care Instructions: other - see discharge instructions Discharge Instructions: [facility] [id number] [facility]
== END 2024-03-09 13:30 | disposition home or self-care (01) | DRG 322 ==
LOC: ANHED 03-05 03:27 → ANHIMU 03-05 03:45
PROVIDERS: Internal Medicine; Internal Medicine Cardiovascular Disease; Nurse Practitioner; Physician Assistant; Specialist; Admitting Provider Internal Medicine; Emergency Provider Emergency Medicine; PCP Emergency Medicine; Visit Provider Nurse Practitioner Acute Care
PROC: 4A023N7 Measurement of Cardiac Sampling and Pressure, Left Heart, Percutaneous Approach (ICD-10-PCS; CPT 93452; principal; 2024-03-05 11:00)
PROC: 4A023N7 Measurement of Cardiac Sampling and Pressure, Left Heart, Percutaneous Approach (ICD-10-PCS; 2024-03-05 11:00)
PROC: 027135Z Dilation of Coronary Artery, Two Arteries with Two Drug-eluting Intraluminal Devices, Percutaneous Approach (ICD-10-PCS; CPT 93454; principal; 2024-03-08 13:30)
PROC: 027135Z Dilation of Coronary Artery, Two Arteries with Two Drug-eluting Intraluminal Devices, Percutaneous Approach (ICD-10-PCS; 2024-03-08 13:30)
DX: I21.4 Non-ST elevation (NSTEMI) myocardial infarction (principal); N40.0 Benign prostatic hyperplasia without lower urinary tract symptoms; Z85.51 Personal history of malignant neoplasm of bladder; Z85.038 Personal history of other malignant neoplasm of large intestine; Z85.828 Personal history of other malignant neoplasm of skin; I25.10 Atherosclerotic heart disease of native coronary artery without angina pectoris; E78.2 Mixed hyperlipidemia; R10.13 Epigastric pain
CPT/HCPCS: 36415; 71046; 71275; 74174; 76705; 80048; 80053; 80061; 82150; 83605; 83690; 83735; 84484; 85025; 85027; 85610; 85730; 93005; 93306; 93454; 93458; 96374; 96375; 96376; 99291; A9270; C1725; C1760; C1769; C1874; C1887; C1894; C9600; G0269; J0461; J0583; J1644; J2250; J2270; J2405; J3010; J7030; J7040; Q9967

== ENCOUNTER 2024-07-21 11:16 | Outpatient (CLI) | payer MEDICARE, OTHER, SELFPAY ==
[2024-07-21 12:50] LABS: Add Urine Microscopic? NO; Appearance Urine Clear (Clear); Bilirubin Urine Negative (Negative); Blood Urine Negative (Negative); Color Urine Yellow (Yellow); Glucose Urine UA Negative (Negative); Ketones Urine Negative (Negative); Leukocyte Esterase Ur Negative LEU/UL (Negative); Nitrate Urine Negative (Negative); Protein Urine Negative (Negative); Specific Grav Ur 1.021 (1.001-1.035); Urobilinogen Urine 0.2 mg/dL (<2.0)
[2024-07-21 13:27] LABS: Prostate Specific Antigen 1.1 ng/mL (< OR = 4.0)
== END 2024-07-21 11:17 | disposition home or self-care (01) ==
PROVIDERS: PCP Emergency Medicine
DX: Z85.51 Personal history of malignant neoplasm of bladder (principal); Z12.5 Encounter for screening for malignant neoplasm of prostate; N40.1 Benign prostatic hyperplasia with lower urinary tract symptoms
CPT/HCPCS: 36415; 81003; 84153; 87086; 88108; G0103

== ENCOUNTER 2024-07-28 10:00 | Outpatient (RCR) | payer MEDICARE, OTHER, SELFPAY | END 2024-08-02 08:37 | disposition home or self-care (01) | LOC: ANHCPREHAB 10:00 | PROVIDERS: PCP Emergency Medicine; Visit Provider Specialist | DX: Z95.5 Presence of coronary angioplasty implant and graft (principal); Z12.5 Encounter for screening for malignant neoplasm of prostate | CPT/HCPCS: 36415; 81003; 84153; 87086; 88108; 93798; G0103 ==

== ENCOUNTER 2025-03-08 09:56 | Outpatient (CLI) | payer MEDICARE, OTHER, SELFPAY ==
--- OUTSIDE RECORDS SUMMARY | 2025-03-08 11:05 | XMS_ITS | Encounter Summary ---
Author Organization [facility] Healthcare Address [address] [place] [id number] Care Team Providers Care Six Sigma Project Manager Name Role Phone KOBI Mcguire Jr., Antno Mendez Primary Care Provider Encounter Details Date Type Department Care Team (Late st Contact Info) Description 03/09/2024 Orders Only [facility] Health Information Management [address] [place] [id number] Scanning, Provider Social History Tobacco Use Types Packs/Day Years Used Date Smoking Tobacco: Never Sex and Gender Information Value Date Recorded Sex Assigned at Not on file Legal Sex Male 4:46 AM [employer] Gender Identity Not on file Sexual Orientation Not on file documented as of this encounter Plan of Treatment Not on file documented as of this encounter Procedures Procedure Name Priority Date/Time Associated Diagnosis Comments CARDIOLOGY DOCUMENT SCAN 03/09/2024 9:28 PM CDT SCAN - LABS 03/09/2024 documented in this encounter Results * Cardiology Document Scan (03/09/2024 9:28 PM CDT) Anatomical Region Laterality Modality Other us Provider Scanning CV CARDIAC SERVICES PROCEDURES Final Result * SCAN - LABS (03/09/2024) us Provider Scanning Final Result documented in this encounter Visit Diagnoses Not on filedocumented in this encounter Care Teams Six Sigma Project Manager Relationship Specialty Start [place] [address] [address] [place] [address] PCP - General Family Practice 03/05/24 documented as of this encounter
--- OUTSIDE RECORDS SUMMARY | 2025-03-08 11:05 | XMS_ITS | Encounter Summary ---
Author Organization [facility] Address [address] [place] [address] Care Team Providers Care Risk Officer Name Role Phone Anton Mcguire Primary Care Provider [phone] Josef Feliciano MD Primary Care Provider [phone] Anton Mcguire Unavailable [phone] Leonor Workman MD Unavailable Reason for Referral * Surgical (Routine) - Closed Specialty Diagnoses / Procedures Referred By Contaleshia t Referred To Contact Diagnoses Z85.51 Procedures Case request operating room: CYSTOSCOPY Kalli Oglesby III, MD Phone: tel: fax: Referral ID Status Reason Start Date Expiration Date Visits Re quested Visits Authorized [id number] Closed 04/18/2020 05/18/2021 1 1 Encounter Details Date Type Department Care Team (Late st Contact Info) Description 04/18/2020 Prep for Procedure [place] [facility] [address] [place] [address] [place] [address] [place] [address] Social History Tobacco Use Types Packs/Day Years Used Date Smoking Tobacco: Never Smokeless Tobacco: Never Alcohol Use Standard Drinks/Week Comments Not Currently 0 (1 standard drink = 0.6 oz pur e alcohol) Sex and Gender Information Value Date Recorded Sex Assigned at Not on file Legal Sex Male 10:30 PM CDT Gender Identity Not on file Sexual Orientation Not on file COVID-19 Exposure Response Date Recorded In the last month, have you been in contact with someone who was confirmed or suspected to have Coronavirus / COVID-19? No / Unsure 04/14/2020 8:25 AM CDT documented as of this encounter Plan of Treatment Scheduled Orders Name Type Priority Associated Diagnoses Orde r Schedule Case request operating room: CYSTOSCOPY Case Request Routine Once for 1 Occurrences starting 04/18/2020 until 04/18/2020 documented as of this encounter Visit Diagnoses Not on filedocumented in this encounter Additional Health Concerns Infection Onset Date Last Indicated Resolved Time COVID-19 Rule Out 04/22/2020 04/22/2020 04/23/2020 1:50 PM CDT COVID-19 Rule Out 04/21/2021 04/21/2021 04/23/2021 1:27 PM CDT documented as of this encounter Care Teams Risk Officer Relationship Specialty [place] [address] [address] [place] [address] PCP - General PHYSICIAN CLERK SUPERVISOR 04/06/19 05/21/21 [place] [address] [place] [address] PCP - General FAMILY PRACTICE 05/22/21 [place] [address] [place] [address] Physician Volunteer Recruiter PHYSICIAN CLERK SUPERVISOR 05/24/21 Leonor Workman MD [address] [place] [address] Consulting Physician CARDIOVASCULAR DISEASE 05/24/21 documented as of this encounter
--- OUTSIDE RECORDS SUMMARY | 2025-03-08 11:05 | XMS_ITS | Encounter Summary ---
Author Organization [facility] Address [address] [place] [address] Care Team Providers Care Duplicator Punch Operator Name Role Phone Anton Mcguire Primary Care Provider [phone] Josef Feliciano MD Primary Care Provider [phone] Anton Mcguire Unavailable [phone] Leonor Workman MD Unavailable Encounter Details Date Type Department Care Team (Late st Contact Info) Description 04/17/2019 Abstract SFL CONVERSION [address] [place] [address] , Generic Conversion, Social History Tobacco Use Types Packs/Day Years Used Date Smoking Tobacco: Never Sex and Gender Information Value Date Recorded Sex Assigned at Not on file Legal Sex Male 10:30 PM CDT Gender Identity Not on file Sexual Orientation Not on file documented as of this encounter Plan of Treatment Not on file documented as of this encounter Visit Diagnoses Not on filedocumented in this encounter Additional Health Concerns Infection Onset Date Last Indicated Resolved Time COVID-19 Rule Out 04/14/2020 04/14/2020 04/15/2020 6:04 PM CDT COVID-19 Rule Out 04/22/2020 04/22/2020 04/23/2020 1:50 PM CDT COVID-19 Rule Out 04/21/2021 04/21/2021 04/23/2021 1:27 PM CDT documented as of this encounter Care Teams Duplicator Punch Operator Relationship Specialty [place] [address] [place] [address] PCP - General PHYSICIAN INDUSTRIAL HEALTH ENGINEER 04/06/19 05/21/21 [place] [address] [place] [address] PCP - General FAMILY PRACTICE 05/22/21 [place] [address] [place] [address] Physician Multiple Punch Press Operator PHYSICIAN INDUSTRIAL HEALTH ENGINEER 05/24/21 Leonor Workman MD [address] [place] [address] Consulting Physician CARDIOVASCULAR DISEASE 05/24/21 documented as of this encounter
--- OUTSIDE RECORDS SUMMARY | 2025-03-08 11:05 | XMS_ITS | Encounter Summary ---
Author Organization [facility] Address [address] [place] [address] Care Team Providers Care Systems Trainer Name Role Phone Josef Feliciano MD Primary Care Provider [phone] Anton Mcguire Unavailable [phone] Leonor Workman MD Unavailable Reason for Visit * Reason Onset Date Comments Medication 05/05/2023 Encounter Details Date Type Department Care Team (Late st Contact Info) Description 05/05/[address] [facility] [address] [place] [address] Leonor Workman MD [address] [place] [address] Medication Social History Tobacco Use Types Packs/Day Years Used Date Smoking Tobacco: Never Smokeless Tobacco: Never Alcohol Use Standard Drinks/Week Comments Yes 0 (1 standard drink = 0.6 oz pur e alcohol) occasionally Sex and Gender Information Value Date Recorded Sex Assigned at Not on file Legal Sex Male 10:30 PM CDT Gender Identity Not on file Sexual Orientation Not on file Occupation Industry Job Start Date Job End Date Not on file Not on file Not on file Not on file documented as of this encounter Progress Notes * Manuel Vasquez LPN - 05/05/2023 3:49 PM CDT Addressed in another encounter. * Cristhian Duncan - 05/05/2023 10:47 AM CDT VM DATE/TIME:05/05/2023 at 10:03 am CALLER: pt(louis) PH #: [phone] PROVIDER/NEW PT: REASON FOR CALL: pt has concerns regarding his medications. REQUEST HANDLED AND HOW: sent to nurse documented in this encounter Plan of Treatment Not on file documented as of this encounter Visit Diagnoses Not on filedocumented in this encounter Care Teams Systems Trainer Relationship Specialty Start Date End Date Josef Feliciano MD PCP - General FAMILY PRACTICE 05/22/21 [place] [address] [place] [id number] Physician Brim Curler PHYSICIAN PHARMACIST PER DIEM 05/24/21 Leonor Workman MD [address] [place] [address] Consulting Physician CARDIOVASCULAR DISEASE 05/24/21 documented as of this encounter
--- OUTSIDE RECORDS SUMMARY | 2025-03-08 11:05 | XMS_ITS | Clinical Summary ---
Author Organization [facility] Address [address] [place] [address] Care Team Providers Care Cable Driller Name Role Phone Josef Feliciano MD Primary Care Provider [phone] Anton Mcguire Unavailable [phone] Leonor Workman MD Unavailable Allergies Active Allergy Reactions Criticality Noted Date Comments Midazolam Unknown 04/19/2016 Niacin Unknown 07/02/2021 Statins Unknown 04/18/2020 Rosuvastatin- myalgia/joint pain Medications pantoprazole EC 40 MG tablet Take 40 mg by mouth daily. 0 Active latanoprost 0.005 % ophthalmic solution Place 1 drop into both eyes nightly at bedtime. Active ondansetron 4 MG tablet Take 4 mg by mouth as needed for Nausea. Active finasteride (PROSCAR) 5 MG tablet Take 5 mg by mouth see administration instructions. 2 Active ezetimibe (ZETIA) 10 MG tablet Take 1 tablet (10 mg total) by mouth daily. 30 tablet 11 3 Active alirocumab (PRALUENT) 150 mg/mL injection (PEN) Inject 1 mL (150 mg total) into the skin every 14 (fourteen) days. 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 Family History Relation Status Comments Brother Father Maternal Grandfather Maternal Grandmother Mother Paternal Grandfather Paternal Grandmother Sister Social History Tobacco Use Types Packs/Day Years Used Date Smoking Tobacco: Never Smokeless Tobacco: Never Tobacco Cessation:Counseling Given: Not Answered Alcohol Use Standard Drinks/Week Comments Yes 0 [...] file Not on file Not on file Last Filed Vital Signs Vital Sign Reading Time Taken Comments Blood Pressure 129/81 12/11/2023 10:15 AM INSPECTOR FIBROUS WALLBOARD Pulse 70 12/11/2023 10:15 AM INSPECTOR FIBROUS WALLBOARD Temperature 36.2 C (97.2 F) 07/02/2022 7:17 AM CDT Respiratory Rate 20 12/11/2023 10:15 AM INSPECTOR FIBROUS WALLBOARD Oxygen Saturation 99% 12/11/2023 10:15 AM INSPECTOR FIBROUS WALLBOARD Inhaled Oxygen Concentration - - Weight 83 kg (183 lb) 12/11/2023 10:15 AM INSPECTOR FIBROUS WALLBOARD Height 182.9 cm (6') 12/11/2023 10:15 AM INSPECTOR FIBROUS WALLBOARD Body Mass Index 24.82 12/11/2023 10:15 AM INSPECTOR FIBROUS WALLBOARD Plan of Treatment Health Maintenance Due Date Last Done Comments Colorectal Cancer Screening Colonoscopy (10 Years) 1950 EGD-Calvillo's Surveillance 1950 Hepatitis C 1968 DTaP, Tdap and Td Vaccines ( 1 - Tdap) 1969 Pneumococcal Vaccine: 50+ Years (1 of 1 - PCV) 2000 Zoster Vaccines (1 of 2) 2000 Annual Medicare Wellness Visit 2015 COVID-19 Vaccine (3 - 2023-2 5 season) 2024 01/15/2021, 12/25/2020 RSV Immunization or 60+ Years (1 - 1-dose 75+ series) 2025 Meningococcal B Vaccine Aged Out No l onger eligible based on patient's age to complete this topic Meningococcal Vaccine Aged Out No rocael aniket eligible based on patient's age to complete this topic RSV Immunizations Under 20 Months Aged Out No longer eligible b ased on patient's age to complete this topic Insurance MEDICARE [facility] Care Teams Cable Driller Relationship Specialty Start Date End Date Josef Feliciano MD PCP - General FAMILY PRACTICE 05/22/21 [place] [address] [place] [address] Physician Sheet Metal Fabricator PHYSICIAN WELDER SETTER ELECTRON BEAM MACHINE 05/24/21 Leonor Workman MD [address] [place] [address] Consulting Physician CARDIOVASCULAR DISEASE 05/24/21
--- OUTSIDE RECORDS SUMMARY | 2025-03-08 11:05 | XMS_ITS | Referral Summary ---
Author Organization [facility] [address] [address] [place] [address] Care Team Providers Care Mechanical Repair Worker Name Role Phone KOBI Mcguire Jr., Anton Mendez Primary Care Provider Encounters Date Type Department Care Team Description 01/25/2025 11:15 AM CDT Office Visit 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 Outpatient Lab at [address] [phone] Malignant neoplasm of transverse colon (HCC) (Primary Dx) 12/21/2024 Telephone [facility] Cardiology [address] [place] [address] [address] [place] [address] Luís Alston MD lab order from Last 3 Months Allergies Active Allergy Reactions Criticality Noted Date Comments Midazolam Agitation,Unknown Low 04/19/2016 Niacin Unknown 07/02/2021 Qtdgkaa-Dcg-Pup Reductase Inhibitors Unknown 04/18/2020 Rosuvastatin- myalgia/joint pain Medications finasteride (PROSCAR) 5 mg tablet Take 1 tablet (5 mg total) by mouth 2 Active silodosin (RAPAFLO) 8 mg capsule TAKE 1 CAPSULE BY MOUTH ONCE DAILY AT BEDTIME - TAKE INSTEAD OF TAMSULOSIN - 4 Active latanoprost (XALATAN) 0.005 % ophthalmic solution INSTILL 1 DROP IN BOTH EYES EVERY DAY AT BEDTIME Active pantoprazole DR (PROTONIX) 40 mg EC tablet Take 1 tablet (40 mg total) by mouth daily Active aspirin 81 mg chewable tablet Take 1 tablet (81 mg total) by mouth daily 90 tablet 3 4 Active nitroglycerin (NITROSTAT) 0.4 mg SL tabletIndicatio ns: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 25 tablet 3 4 Active alirocumab (Praluent Pen) 150 mg/mL pen injector Inject 150 mg under the skin every 14 (fourteen) days 2 mL 11 4 Active metoprolol XL (TOPROL-XL) 25 mg extended release tablet TAKE 1 TABLET(25 MG) BY MOUTH EVERY MORNING 90 tablet 3 5 Active Active Problems Problem Noted Date Diagnosed Date Status post insertion of drug eluting coronary a rtery stent 07/20/2024 Malignant neoplasm of transverse colon 3 Social History Tobacco Use Types Packs/Day Years Used Date Smoking Tobacco: Never Tobacco Cessation:Counseling Given: Not Answered Sex and Gender Information Value Date Recorded Sex Assigned at Not on file Legal Sex Male 4:46 AM PRESS OPERATOR PRINTING Gender Identity Not on file Sexual Orientation Not on file Last Filed Vital Signs Vital Sign Reading Time Taken Comments Blood Pressure 122/80 01/25/2025 11:16 AM CDT Pulse 68 01/25/2025 11:16 AM CDT Temperature - - Respiratory Rate - - Oxygen Saturation 98% 01/25/2025 11:16 AM CDT Inhaled Oxygen Concentration - - Weight 85.8 kg (189 lb 3.2 oz) 01/25/2025 11:16 AM CDT Height 180.3 cm (5' 11 ) 01/25/2025 11:16 AM CDT Body Mass Index 26.39 01/25/2025 11:16 AM CDT Plan of Treatment Not on file Procedures Procedure Name Priority Date/Time Associated Diagnosis Comments ELECTROCARDIOGRAM REPORT Routine 025 3:33 PM CDT Status post insertion of drug eluting coronary artery stent LIPID PANEL Routine 01/04/2025 9:27 AM PRESS OPERATOR PRINTING 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 Expert Panel on Integrated Guidelines for Cardiovascular Health and Risk Reduction in Children and Adolescents. Pediatrics 2011;128:S213 2. NCEP Expert Panel. Circulation 2004;110:227 Current Interpretive Data was last revised on 2018. Triglycerides 248(H) <=149 mg/dL STACY GARZA Comment: Interpretive Data Ages < or = 9 years Acceptable: <75 mg/dL Borderline high: 75-99 mg/dL High: >or= 100 mg/dL Ages 10 to 20 years Acceptable: <90 mg/dL Borderline high: 90-129 mg/dL High: >or= 130 mg/dL Ages > or = 20 years Desirable: <150 mg/dL Borderline high: 150-199 mg/dL High: 200-499 mg/dL Very high: >or= 499 mg/dL Literature References: 1. Expert Panel on Integrated Guidelines for Cardiovascular Health and Risk Reduction in Children and Adolescents. Pediatrics 2011;128:S213 2. NCEP Expert Panel. Circulation 2004;110:227 Current Interpretive Data was last revised on 2018. HDL 43 >=40 mg/dL STACY GARZA Comment: Interpretive Data Ages < or = 19 years Acceptable: >45 mg/dL Borderline low: 40-45 mg/dL Low: <40 mg/dL Ages > or = 20 years Desirable: >or= 60 mg/dL Low: <40 mg/dL Literature References: 1. Expert Panel on Integrated Guidelines for Cardiovascular Health and Risk Reduction in Children and Adolescents. Pediatrics 2011;128:S213 2. NCEP Expert Panel. Circulation 2004;110:227 Current Interpretive Data was last revised on 2018. LDL, calculated 88 <=129 mg/dL STACY GARZA Comment: Interpretive Data Ages < or = 19 years Acceptable: <110 mg/dL Borderline high: 110-129 mg/dL High: >or= 130 mg/dL Ages > or = 20 years Optimal: <100 mg/dL Near optimal: 100-129 mg/dL Borderline high: 130-159 mg/dL High: >160 mg/dL Calculated using the Dao LDL-C estimating equation. This equation was implemented on 2024. Prior to this date LDL-C was estimated using the Friedewald equation. Literature References: 1. Expert Panel on Integrated Guidelines for Cardiovascular Health and Risk Reduction in Children and Adolescents. Pediatrics 2011;128:S213 2. NCEP Expert Panel. Circulation 2004;110:227 3. Dao Lee et al. ALIN Cardiol. 2020 March 10;5(5):540-548. doi: 10.1001/jamacardio.2020.0013 Current Interpretive Data was last revised on 2024. Non-HDL Cholesterol 129 mg/dL STACY GARZA Comment: Interpretive Data Ages < or = 19 years Acceptable: <120 mg/dL Borderline high: 120-144 mg/dL High: >145 mg/dL Ages > or = 20 years When triglycerides are >200 mg/dL, Non-HDL cholesterol is a secondary target of therapy with treatment goals that are 30 mg/dL greater than the LDL cholesterol target. Literature References: 1. Expert Panel on Integrated Guidelines for Cardiovascular Health and Risk Reduction in Children and Adolescents. Pediatrics 2011;128:S213 2. NCEP Expert Panel. Circulation 2004;110:227 Current Interpretive Data was last revised on 2018. Chol/HDL ratio 4 STACY Blood 01/04/2025 9:27 AM PRESS OPERATOR PRINTING 01/04/2025 10:56 PM PRESS OPERATOR PRINTING us Luís Alston MD LAB BLOOD ORDERABLES Fin al Result STACY GARZA [id number] [place] [address] from Last 3 Months Insurance MEDICARE [facility] Address: [address] [address] [facility] Care Teams Mechanical Repair Worker Relationship Specialty [place] [address] [address] [place] [address] PCP - General Family Practice 03/05/24
--- OUTSIDE RECORDS SUMMARY | 2025-03-08 11:05 | XMS_ITS | Clinical Summary ---
Author Organization [facility] [address] Address [address] [place] [address] Care Team Providers Care Phosphoric Acid Supervisor Name Role Phone KOBI Mcguire Jr., Anton Mendez Primary Care Provider Allergies Active Allergy Reactions Criticality Noted Date Comments Midazolam Agitation,Unknown Low 04/19/2016 Niacin Unknown 07/02/2021 Fnkrvhv-Cfx-Ezs Reductase Inhibitors Unknown 04/18/2020 Rosuvastatin- myalgia/joint pain [...] mg SL tabletIndicatio ns:Coronary artery disease involving mechoopda coronary artery of mechoopda heart without angina pectoris Place 1 tablet [...] 07/20/2024 Malignant neoplasm of transverse colon 3 Encounters Date Type Department Care Team Description 01/25/2025 11:15 AM CDT Office Visit [facility] Cardiology [address] [place] [address] Luís Alston MD Status post insertion of drug eluting coronary artery stent (Primary Dx) 01/04/2025 9:30 AM SALES REPRESENTATIVE [employer] Lab [facility] Outpatient Lab at [address] [address] Malignant neoplasm of transverse colon (HCC) (Primary Dx) 01/04/2025 9:27 AM SALES REPRESENTATIVE [employer] - 01/04/2025 11:59 PM SALES REPRESENTATIVE [facility] Hospital Encounter [address] [address] Coronary artery disease involving mechoopda coronary artery of mechoopda heart without angina pectoris Discharge Disposition: Discharge to home or self care 12/21/2024 Telephone [facility] Cardiology [address] [facility] [address] [place] [address] Luís Alston MD lab order from Last 3 Months Surgical History Surgery Date Site/Laterality Comments LAPAROSCOPIC COLON RESECTION COLON SURGERY SHOULDER SURGERY Bilateral Medical History Medical History Date Comments Hyperlipidemia Past heart attack Family History Medical History Relation Name Comments Cancer Mother Relation Name Status Comments Brother Alive Father Mother Social History Tobacco Use Types Packs/Day Years Used Date Smoking Tobacco: Never Tobacco Cessation:Counseling Given: Not Answered Sex and Gender Information Value Date Recorded Sex Assigned at Not on file Legal Sex Male 4:46 AM SALES REPRESENTATIVE [employer] Gender Identity Not on file Sexual Orientation Not on file Obstetrics History Last Filed Vital Signs Vital Sign Reading [...] 01/25/2025 11:16 AM CDT Plan of Treatment Health Maintenance Due Date Last Done Comments Colon Cancer Screening-Colonoscopy 1950 Depression Screening 1950 Fall Risk Assessment 1950 Hepatitis C Screening 1950 DTaP/Tdap/Td Vaccine (1 - Tdap) 1961 Hepatitis B Screening 1968 Pneumococcal vaccine 65+ (1 of 1 - PCV) 2000 Zoster Vaccine (1 of 2) 2000 Well Visit 65+ 2015 Covid-19 Vaccine (6 2023-2 5 season) 2024 09/09/2022, 03/11/2022, 08/14/2021, Additional history exists Influenza Vaccine (Season Ended) 2025 07/16/2023, 08/29/2022, 08/01/2021, Additional history exists Procedures Procedure Name Priority Date/Time Associated Diagnosis Comments ELECTROCARDIOGRAM REPORT Routine 025 3:33 PM CDT Status post insertion of drug eluting coronary artery stent LIPID PANEL Routine 01/04/2025 9:27 AM SALES REPRESENTATIVE [employer] Coronary artery disease involving mechoopda coronary artery of mechoopda heart without angina pectoris from Last 3 Months Results * Electrocardiogram Report (01/25/2025 3:33 PM CDT) us Luís Alston MD ECG ORDERABLES Final Re sult * (ABNORMAL) Lipid panel (01/04/2025 9:27 AM SALES REPRESENTATIVE [employer]) Cholesterol 172 30 - 199 mg/dL Comment: [...] mg/dL High: >160 mg/dL Calculated using the Dc LDL-C estimating equation. This equation was implemented [...] revised on 2018. Chol/HDL ratio 4 STACY GARZA Blood 01/04/2025 9:27 AM SALES REPRESENTATIVE [facility] [facility] 01/04/2025 10:56 PM SALES REPRESENTATIVE [employer] us Luís Alston MD LAB BLOOD ORDERABLES Fin al Result STACY [address] Department [place] [address] from Last 3 Months Insurance MEDICARE [facility] Care Teams Phosphoric Acid Supervisor Relationship Specialty Start [place] [address] [address] [place] [address] PCP - General Family Practice 03/05/24
--- OUTSIDE RECORDS SUMMARY | 2025-03-08 11:05 | XMS_ITS | Encounter Summary ---
Author Organization [facility] Healthcare Address [address] [place] [address] Care Team Providers Care Assessment Specialist Name Role Phone KOBI Mcguire Jr., Anton Mendez Primary Care Provider Encounter Details Date Type Department Care Team (Late st Contact Info) Description 03/04/2024 Orders Only [facility] Information Management [address] [place] [address] Scanning, Provider Social History Tobacco Use Types Packs/Day Years Used Date Smoking Tobacco: Never Sex and Gender Information Value Date Recorded Sex Assigned at Not on file Legal Sex Male 4:46 AM PROJECTION PRINTER Gender Identity Not on file Sexual Orientation Not on file documented as of this encounter Plan of Treatment Not on file documented as of this encounter Procedures Procedure Name Priority Date/Time Associated Diagnosis Comments SCAN - RADIOLOGY/IMAGING 03/04/2024 documented in this encounter Results * SCAN - RADIOLOGY/IMAGING (03/04/2024) Anatomical Region Laterality Modality Other us Provider Scanning Final Result documented in this encounter Visit Diagnoses Not on filedocumented in this encounter Care Teams Assessment Specialist Relationship Specialty Start [place] [address] [address] [place] [address] PCP - General Family Practice 03/05/24 documented as of this encounter
--- OUTSIDE RECORDS SUMMARY | 2025-03-08 11:05 | XMS_ITS | Encounter Summary ---
Author Organization [facility] Address [address] [place] [id number] Care Team Providers Care Hr Specialist Name Role Phone Anton Mcguire Primary Care Provider [phone] Josef Feliciano MD Primary Care Provider [phone] Anton Mcguire Unavailable [phone] Leonor Workman MD Unavailable Reason for Referral * Surgical (Routine) - Closed Specialty Diagnoses / Procedures Referred By Contaleshia t Referred To Contact Procedures Case request operating room: CYSTOSCOPY FLEXIBLE Kalli Oglesby III, MD Phone: tel: fax: Referral ID Status Reason Start Date Expiration Date Visits Re quested Visits Authorized [id number] Closed 04/26/2020 05/26/2021 1 1 Encounter Details Date Type Department Care Team (Late st Contact Info) Description 04/26/2020 Prep for Procedure [facility] [address] [place] [address] [place] [address] [place] [address] Social History Tobacco Use Types Packs/Day Years [...] have Coronavirus / COVID-19? No / Unsure 04/22/2020 8:10 AM CDT documented as of this encounter Plan of Treatment Scheduled Orders Name Type Priority Associated Diagnoses Orde r Schedule Case request operating room: CYSTOSCOPY FLEXIBLE Case Request Routine Once for 1 Occurrences starting 04/26/2020 until 04/26/2020 documented as of this encounter Visit Diagnoses Not on filedocumented in this encounter Additional Health Concerns Infection Onset Date Last Indicated Resolved Time COVID-19 Rule Out 04/21/2021 04/21/2021 04/23/2021 1:27 PM CDT documented as of this encounter Care Teams Hr Specialist Relationship Specialty [place] [address] [address] [place] [address] PCP - General PHYSICIAN CLINICAL REHABILITATION LIAISON 04/06/19 05/21/21 [place] [address] [place] [address] PCP - General FAMILY PRACTICE 05/22/21 [place] [address] [address] [place] [address] Physician Supplier Quality Engineer PHYSICIAN CLINICAL REHABILITATION LIAISON 05/24/21 Leonor Workman MD [address] [place] [address] Consulting Physician CARDIOVASCULAR DISEASE 05/24/21 documented as of this encounter
== END 2025-03-08 09:57 | disposition home or self-care (01) ==
LOC: CHSLAB 09:59
PROVIDERS: PCP Emergency Medicine; Visit Provider Specialist
DX: D48.5 Neoplasm of uncertain behavior of skin (principal)
CPT/HCPCS: 88305